=== PATIENT | female | born 1960 | race Caucasian/White ===

== ENCOUNTER 2020-02-08 01:03 | Inpatient (IN) | payer MEDICARE, MEDICAID ==
[~2020-02-08] VITALS: Ht 165.1 cm; Wt 72.1 kg
[2020-02-08] VITALS (8 sets, daily range): BP systolic 100–148; BP diastolic 71–89
[~2020-02-08 01:03] MED LIST: AMLODIPINE BESY10 MG ORAL; Acetaminophen GT; BACTROBAN 2% OI15 GM TOPIC; CARAFATE1 G1 ORAL; CEFDINIR300 MG PO; CEFEPIME-D1 GM/50 ML IVPB; CEPHALEXIN500 MG ORAL; CRESTOR40 MG ORAL; DOCUSATE SODIU100 M2 ORAL; DOCUSATE SODIU100 MG ORAL; FERROUS SULFAT325 MG ORAL; FLUOXETINE HCL40 MG ORAL; GABAPENTIN600 MG ORAL; GEODON20 MG ORAL; GEODON40 MG ORAL; HEPARIN SO5000 UNIT2 SUBQ; IBUPROFEN800 MG ORAL; LANSOPRAZOLE30 MG GT; LASIX20 M1 ORAL; LIPITOR80 MG GT; LOPRESSOR25 M1 GT; LORAZEPAM2 MG ORAL; METOCLOPRAM5 MG/1 M1 IVP; METOPROLOL SUC100 MG ORAL; MYRBETRIQ25 MG PO; NEXIUM40 MG ORAL; NORCO 5-325 TA1 EACH ORAL; NORVASC5 MG GT; NOVOLOG100 UNITS1 SUBQ; PANTOPRAZOLE SO40 MG ORAL; TEMAZEPAM15 MG ORAL; XANAX1 MG PO; ZYPREXA10 MG ORAL
--- NOTE | 2020-02-08 01:15 | Emergency Room Report ---
History of Present Illness General Chief Complaint: Back pain Source: Patient, EMS Present Illness HPI Disclaimer: Please note that this report is being documented using DRAGON technology. This can lead to erroneous entry secondary to incorrect interpretation by the dictating instrument. HPI: 59-year-old female history of dementia presents from nursing facility after a fall. Patient reportedly rolled out of her bed onto her right side approximately 30 minutes prior to arrival. She is complaining of back pain. Unknown head injury or loss of conscious. Does not appear to be in any acute distress at this time. Does not recall the fall and is a poor historian. Also an abrasion over the left elbow is noted but she does not appear to be in any pain from it. Allergies: Coded Allergies: No Known Allergies (Verified , 09/23/14) COVID-19 Screening Contact w/high risk pt: No Recent Travel to affected area: No Experienced COVID-19 symptoms?: No COVID-19 symptoms experienced: Cough Nursing Documentation-PMH Hx Cardiac Problems: No Hx Hypertension: Yes Hx Asthma: Yes Hx Cancer: No Hx Gastrointestinal Problems: Yes Hx Neurological Problems: Yes - rib fracture Hx Peripheral Neuropathy: Yes Review of Systems All Other Systems: negative except mentioned in HPI Physical Exam General: Awake, confused, no acute distress HEENT: NC/AT. No scalp or facial hematomas, lacerations or abrasions. EOMI. Cardiovascular: RRR. S1 and S2 normal. Resp: Normal work of breathing. No cough, wheezing or crackles appreciated Abdomen: Abdomen is soft, nondistended. G-tube in place Skin: Very small skin abrasion over the left elbow. Hemostatic. MSK: Normal tone and bulk. Lower extremities held in contracture. No obvious deformity. Neuro: Awake, oriented to self only. Poor historian Spine: Tenderness in the midline at the base of the cervical spine, the entire thoracic and lumbosacral spine without obvious deformity or step-off. Procedures Critical Care Time Critical Care Time Total critical care time: Approximately 45 minutes Due to a high probability of clinically significant, life threatening deterioration, the patient required the highest level of preparedness to intervene emergently and I personally spent this critical care time directly and personally managing the patient. This critical care time included obtaining a history, examining the patient, pulse oximetry, ordering and reviewing studies , ordering treatments, evaluating response to treatment and updating management plan as needed, frequent reassessment and discussion with other providers as well as arranging for ultimate disposition. This critical to care time was performed to assess and manage the high probability of life-threatening deterioration that could result in multiorgan failure. This critical care time is separate from the separately billable procedures and treating other patients. Medical Decision Making Diagnostic Impression: Primary Impression: Fall from bed Additional Impressions: Back pain Pleural effusion Hyperkalemia ER Course 59-year-old female presents after reported fall from bed at longterm facility. Unknown whether or not the patient sustained a head injury. She has multiple psychiatric conditions and is a poor historian overall. No external signs of trauma except she is complaining of diffuse back pain. CT scan of the head and entire spine were obtained as well as x-ray of the left elbow as there was a small abrasion. No evidence of fracture, dislocation or significant trauma identified. 0500: CT scans of the head shows no acute intracranial injury. CT scans of the spine did not find acute injury in the spine however a large right-sided pleural effusion was identified. Patient is not complaining of either shortness of breath, chest pain or now back pain. She did have a brief desaturation while laying on her back but improved by sitting upright and starting patient on oxygen. Labs show slight elevation in potassium patient was treated with insulin, glucose, calcium gluconate. No EKG changes identified. Patient will be admitted to the SDU under her assigned hospitalist, Dr. Petersen Laboratory Tests Test 02/08/20 01:00 White Blood Count 17.3 K/UL (4.8-10.8) H Red Blood Count 4.09 M/UL (4.20-5.40) L Hemoglobin 13.0 G/DL (12.0-16.0) Hematocrit 39.8 % (37.0-47.0) Mean Corpuscular Volume 97 FL (80-99) Mean Corpuscular Hemoglobin 31.8 PG (27.0-31.0) H Mean Corpuscular Hemoglobin Concent 32.6 G/DL (32.0-36.0) Red Cell Distribution Width 14.5 % (11.6-14.8) Platelet Count 495 K/UL (150-450) H Mean Platelet Volume 5.8 FL (6.5-10.1) L Neutrophils (%) (Auto) % (45.0-75.0) Lymphocytes (%) (Auto) % (20.0-45.0) Monocytes (%) (Auto) % (1.0-10.0) Eosinophils (%) (Auto) % (0.0-3.0) Basophils (%) (Auto) % (0.0-2.0) Prothrombin Time 11.3 SEC (9.30-11.50) Prothrombin Time INR 1.0 (0.9-1.1) Activated Partial Thromboplast Time 32 SEC (23-33) Sodium Level 140 MMOL/L (136-145) Potassium Level 5.2 MMOL/L (3.5-5.1) H Chloride Level 101 MMOL/L (98-107) Carbon Dioxide Level 29 MMOL/L (21-32) Anion Gap 11 mmol/L (5-15) Blood Urea Nitrogen 22 mg/dL (7-18) H Creatinine 0.4 MG/DL (0.55-1.30) L Estimated Glomerular Filtration Rate > 60 mL/min (>60) Glucose Level 116 MG/DL (74-106) H Calcium Level 9.5 MG/DL (8.5-10.1) Total Bilirubin 0.5 MG/DL (0.2-1.0) Aspartate Amino Transferase (AST) 46 U/L (15-37) H Alanine Aminotransferase (ALT) 28 U/L (12-78) Alkaline Phosphatase 96 U/L (46-116) Total Protein 7.3 G/DL (6.4-8.2) Albumin 2.9 G/DL (3.4-5.0) L Globulin 4.4 g/dL Albumin/Globulin Ratio 0.7 (1.0-2.7) L EKG Diagnostic Results EKG Time: 05:10 Rate: tachycardiac Other Impression Sinus tachycardia, normal axis, no ST segment changes Rhythm Strip Diag. Results Rhythm Strip Time: 05:10 EP Interpretation: yes Rate: 110s Rhythm: no PVC's, no ectopy Other X-Ray Diagnostic Results Other X-Ray Diagnostic Results : X-Ray ordered: Left elbow # of Views/Limited Vs Complete: 2 View Indication: Pain EP Interpretation: Yes Interpretation: no dislocation, no soft tissue swelling, no fractures Impression: No acute disease Electronically Signed by: Electronically signed by Dr. Mack Xie CT/MRI/US Diagnostic Results CT/MRI/US Diagnostic Results : Impression CT HEAD IMPRESSION: No acute intracranial hemorrhage, midline shift, or mass effect. Radiologist: Luis Sutton MD Electronically Signed: 02/08/20 05:02 Phone: Study ready at 04:47 and initial results transmitted at 05:02 CT C-SPINE IMPRESSION: No acute cervical spine fracture. Severe multilevel degenerative changes. Large right pleural effusion. Radiologist: Luis Sutton MD Electronically Signed: 02/08/20 05:06 Phone: Study ready at 05:00 and initial results transmitted at 05:06 Disposition: ADMITTED INPATIENT Condition: Serious Mack Xie MD Feb 08, 2020 01:15
--- NOTE | 2020-02-08 05:03 | Diagnostic Imaging Report ---
EXAM: CT Head Without Intravenous Contrast CLINICAL HISTORY: INJ TECHNIQUE: Axial computed tomography images of the head/brain without intravenous contrast. CTDI is 53.40 mGy and DLP is 1072.20 mGy-cm. One or more of the following dose reduction techniques were used: automated exposure control, adjustment of the mA and/or kV according to patient size, use of iterative reconstruction technique. COMPARISON: Head CT November 23, 2019 FINDINGS: No acute intracranial hemorrhage. No midline shift or mass effect. The territorial simon-white matter differentiation is maintained throughout. Age-related cerebral volume loss. Nonspecific white matter hypoattenuation, consistent with chronic ischemic microangiopathy. Right cataract surgery. The calvarium is intact. The visualized paranasal sinuses and mastoid air cells are grossly clear. IMPRESSION: No acute intracranial hemorrhage, midline shift, or mass effect.
--- NOTE | 2020-02-08 05:06 | Diagnostic Imaging Report ---
EXAM: CT Cervical Spine Without Intravenous Contrast CLINICAL HISTORY: INJ TECHNIQUE: Axial computed tomography images of the cervical spine without intravenous contrast. CTDI is 20.20 mGy and DLP is 544.60 mGy-cm. One or more of the following dose reduction techniques were used: automated exposure control, adjustment of the mA and/or kV according to patient size, use of iterative reconstruction technique. COMPARISON: No relevant prior studies available. FINDINGS: The vertebral body heights are maintained. There is no spondylolisthesis. The craniocervical junction is intact. The atlanto-dens interval is maintained. The dens is intact. Severe multilevel degenerative endplate changes with posterior spondylotic ridging at C5-6 and C6-7. Mild spinal canal stenosis at these levels, which is severe multiple levels. Multilevel facet and uncovertebral arthropathy which contributes to multilevel bilateral foraminal stenosis. Large right pleural effusion. IMPRESSION: No acute cervical spine fracture. Severe multilevel degenerative changes. Large right pleural effusion.
[2020-02-08 05:19] LABS: HEMATOCRIT 39.8 % (37.0-47.0); MEAN CORPUSCULAR VOLUME 97 FL (80-99); PLATELET COUNT 495 K/UL (150-450); RED BLOOD COUNT 4.09 M/UL (4.20-5.40); RED CELL DISTRIBUTION WIDTH 14.5 % (11.6-14.8); WHITE BLOOD COUNT 17.3 K/UL (4.8-10.8)
[2020-02-08 05:29] LABS: ANION GAP 11 mmol/L (5-15); BLOOD UREA NITROGEN 22 mg/dL (7-18); CALCIUM 9.5 MG/DL (8.5-10.1); CARBON DIOXIDE 29 MMOL/L (21-32); CHLORIDE 101 MMOL/L (98-107); CREATININE 0.4 MG/DL (0.55-1.30); POTASSIUM 5.2 MMOL/L (3.5-5.1); SODIUM 140 MMOL/L (136-145)
[2020-02-08] MEDS ORDERED: Omnipaque-300 100ml vial INJ ONE (05:30)
[2020-02-08] MEDS ORDERED: Calcium Gluconate 1gm/10ml vial IVP ONE (05:30)
[2020-02-08] MEDS ORDERED: Insulin Human Regular 100units/ml 3ml IV ONE (05:30)
[2020-02-08 05:35] LABS: ALANINE AMINOTRANSFERASE 28 U/L (12-78); ALBUMIN 2.9 G/DL (3.4-5.0); ALBUMIN/GLOBULIN RATIO 0.7 (1.0-2.7); ALKALINE PHOSPHATASE 96 U/L (46-116); ASPARTATE AMINO TRANSFERASE 46 U/L (15-37); BILIRUBIN,TOTAL 0.5 MG/DL (0.2-1.0)
[2020-02-08] MEDS ORDERED: ACETAMINOPHEN325 M1 ORAL (06:06)
[2020-02-08] MEDS ORDERED: CEPHALEXIN500 MG ORAL (06:06)
[2020-02-08] MEDS ORDERED: TRAMADOL HCL50 MG ORAL (06:06)
--- NOTE | 2020-02-08 06:46 | Diagnostic Imaging Report ---
ADDENDUM - Added by Luis Sutton MD on 02/08/2020 7:25 AM (-04:00) The body and impression of the report should state: Acute-appearing compression fracture of the superior endplate of T6 (NOTE T7). No retropulsion of fragments or spinal canal stenosis. Correlation with thoracic spine MRI recommended. EXAM: CT Thoracic Spine Without Intravenous Contrast CLINICAL HISTORY: INJ TECHNIQUE: Axial computed tomography images of the thoracic spine without intravenous contrast. CTDI is 9.2 mGy and DLP is 397 mGy-cm. One or more of the following dose reduction techniques were used: automated exposure control, adjustment of the mA and/or kV according to patient size, use of iterative reconstruction technique. COMPARISON: No relevant prior studies available. FINDINGS: Acute appearing compression fracture of the superior endplate of T7. No significant retropulsion of fragments or spinal canal stenosis at this level. Correlation with thoracic spine MRI is recommended. The remaining thoracic spine vertebral body heights are maintained. There are multilevel degenerative endplate changes, intervertebral disc space narrowing, and facet arthropathy of the lower cervical and thoracic spine. Large right pleural effusion with complete atelectasis of the entire right lung. Mediastinal shift to the left. Moderate centrilobular emphysematous changes of the left lung. Cardiomegaly. Calcified thoracic aorta. IMPRESSION: Acute-appearing compression fracture of the superior endplate of T7. No retropulsion of fragments or spinal canal stenosis. Correlation with thoracic spine MRI recommended. Large right pleural effusion with complete atelectasis of the entire right lung. Mediastinal shift to the left. <MYCVCSECTION> Communications: 02/08/20 07:46 Verify Receipt Verified receipt with Katina PHILIPPE on 02/07 07:46 (-07:00)
--- NOTE | 2020-02-08 07:23 | Diagnostic Imaging Report ---
EXAM: CT Chest Without Intravenous Contrast CLINICAL HISTORY: INJ TECHNIQUE: Axial computed tomography images of the chest without intravenous contrast. CTDI is 7.2 mGy and DLP is 269.8 mGy-cm. One or more of the following dose reduction techniques were used: automated exposure control, adjustment of the mA and/or kV according to patient size, use of iterative reconstruction technique. COMPARISON: No relevant prior studies available. FINDINGS: Large right pleural effusion with atelectasis of the entire right lung. Nodular areas throughout the right pleura are suspicious for metastatic implants. Correlate for any history of malignancy. Mediastinal shift to the left. The left lung demonstrate moderate centrilobular emphysematous changes. Trace left pleural effusion with subjacent atelectasis. No pneumothorax. Atherosclerotic changes of the thoracic aorta, with coronary involvement. No cardiomegaly. No pericardial effusion. There is suspected mediastinal adenopathy however, evaluation is limited without intravenous contrast. Correlation with PET/CT scan versus contrast enhanced CT scan recommended. PEG tube in the stomach. Metallic density in the distal stomach, correlate for gastric intervention. 2.4 cm low attenuation focus in the left hepatic lobe, anteriorly, metastatic disease not excluded. Consider correlation with abdominal MRI. See concomitant thoracic spine CT scan where a T6 fracture suspected. No acute rib fractures. Old left-sided posterior lateral rib fractures which are displaced and appear chronic. IMPRESSION: Large right pleural effusion with atelectasis of the entire right lung. Nodular areas throughout the right pleura are suspicious for metastatic implants. Correlate for any history of malignancy. Mediastinal shift to the left. The left lung demonstrate moderate centrilobular emphysematous changes. There is suspected mediastinal adenopathy however, evaluation is limited without intravenous contrast. Correlation with PET/CT scan versus contrast enhanced CT scan recommended. See concomitant thoracic spine CT scan where a T6 fracture suspected.
[2020-02-08] MEDS ORDERED: Metoclopramide 10mg/2ml Inj IVP PRN (08:15)
[2020-02-08] MEDS ORDERED: traMADol 50mg tab ORAL PRN (08:15)
[2020-02-08] MEDS ORDERED: Heparin 5000 units/ml inj SUBQ SCH (09:00)
--- NOTE | 2020-02-08 10:00 | Consultation ---
DATE OF CONSULTATION: 02/08/2020 PULMONARY CONSULTATION CONSULTING PHYSICIAN: Jose Luis Dunlap MD. REASON FOR CONSULTATION: Pleural effusion. HISTORY OF PRESENT ILLNESS: Patient is a 59-year-old female with history of dementia, history of prior respiratory issues. Patient [facility] from [facility]. The patient apparently rolled out of bed. Patient was seen in the emergency room, was noted to be in no significant distress. Patient admitted for further care and management. The patient has had a history of a rib fracture. Chest CT done on 02/08/2020 for further evaluation notable for large right pleural effusion with atelectasis of the entire right lung with question metastatic implants. The patient's left lung with noted emphysema, also some mediastinal adenopathy. The patient now admitted. I was called to assist and evaluate further. The patient's prior admits were well reviewed. Patient was last discharged on 12/20/2019. 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 SOCIAL HISTORY: Longstanding history of smoking, currently mostly bedbound. REVIEW OF SYSTEMS: Unobtainable. MEDICATIONS: Reviewed and reconciled. ALLERGIES: Reviewed and reconciled. PHYSICAL EXAMINATION: GENERAL: Ill-appearing female. VITAL SIGNS: Reviewed. Pulse 102, blood pressure 134/75, sats 98% on simple mask, temperature 98, respiratory rate 22. HEENT: Negative. The patient's oropharynx is dry. NECK: Supple. No adenopathy. LUNGS: Poor breath sounds right lung, reduced left lung. CARDIAC: S1, S2. Slightly tachycardic without murmurs. ABDOMEN: Soft, nontender. G-tube in place. EXTREMITIES: No cyanosis or clubbing. NEUROLOGIC: Confused. Responds to pain x4. LABORATORY DATA: Reviewed. White count 17.3, platelets of 495. Chemistries, potassium 5.2, BUN 22, creatinine 0.4. Albumin 2.9. IMPRESSION: 1. Recurrent pleural effusion, likely due to small cell cancer. 2. 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 3. Chronic respiratory failure. 4. Hypercapnia. 5. Hypoxemia. 6. Severe protein-calorie malnutrition. 7. Hypertension per history. RECOMMENDATION: We will proceed with thoracentesis for therapeutic purposes. Antibiotics. DVT prophylaxis. Definitely need to discuss code status. The patient overall with poor prognosis for any type of meaningful recovery. We will defer to primary care doctor and attempt to stabilize further prior to discharge back to [facility]. Aspiration precautions and close follow up. Jose Luis Dunlap M.D. DR: MINE JOB#: [id number] CC:
[2020-02-08] MEDS ORDERED: NovoLOG Insulin Flexpen SUBQ SCH ×2 (12:00)
[2020-02-08] MEDS ORDERED: Cephalexin 500mg cap ORAL SCH (12:00)
[2020-02-08] MEDS: NovoLOG Insulin Flexpen SUBQ SCH ×3 (12:00→23:31)
[2020-02-08] MEDS ORDERED: Cephalexin 250mg/5ml Susp 100mL Bottle ORAL SCH ×2 (12:00)
--- NOTE | 2020-02-08 14:33 | Pre-Procedure Note/Attestation ---
Pre-Procedure Note/Attestation Complete Prior to Procedure Planned Procedure: right Procedure Narrative: thoracentesis Indications for Procedure Pre-Operative Diagnosis: pleural effusion Attestation I attest that I discussed the nature of the procedure; its benefits; risks and complications; and alternatives (and the risks and benefits of such alternatives ), prior to the procedure, with the patient (or the patient's legal advertising representative). I attest that, if there was a reasonable possibility of needing a blood transfusion, the patient (or the patient's legal advertising representative) was given the [facility] standardized written summary, pursuant to the Mario Stephanie Blood Safety Act ([place] Health and Safety Code # 1645, as amended). I attest that I re-evaluated the patient just prior to the surgery and that there has been no change in the patient's H&P, except as documented below: D/W phone with pt's. lisa Rodríguez at 1330 Jose Lam MD Feb 08, 2020 14:33
--- NOTE | 2020-02-08 15:11 | Brief Operative Note ---
Immediate Post Operative Note Operative Note Pre-op Diagnosis: pleural effusion Procedure: thoracentesis R Post-op Diagnosis: same as pre-op Surgeon: Ciarra Pérez Anesthesia: local Specimen: none Complications: none Fluids: none Implant(s) used?: No Jose Pérez MD Feb 08, 2020 15:10
--- NOTE | 2020-02-08 15:25 | Diagnostic Imaging Report ---
Indications:Pain, trauma Technique: Three or 4 views of the left elbow Comparison: None Findings: Exam is limited by suboptimal positioning. No acute fractures. No dislocations. Unable to rule out joint effusion, due to lack of a true lateral view. Impression: Very limited exam. No gross acute abnormality
--- NOTE | 2020-02-08 16:15 | Diagnostic Imaging Report ---
Indications: Fall, trauma, back pain Technique: Spiral acquisitions obtained through the lumbar spine. Multiplanar reconstructions were generated. No IV contrast utilized. Total dose length product 473 mGycm. CTDIvol(s) mGy. Dose reduction achieved using automated exposure control Comparison: none Findings: There is mild lumbar dextro scoliotic deformity, may in part be an artifact of positioning. There is bilateral L5 spondylolysis and bilateral grade 2 L5 on S1 spondylolisthesis. The remainder of the bony alignment is normal. The vertebral body heights are preserved. No acute fractures. No dislocations. At L2-3, there is circumferential annular bulge which does not significantly compromise the spinal canal or neural foramina. There is degenerative facet arthrosis. And L3-4, circumferential annular bulge is noted, does not significantly compromise the spinal canal or neural foramina. At L4-5, facet arthrosis narrows the right neural foramen. There is circumferential annular bulge and broad-based posterior disc protrusion which may slightly compromise the spinal canal. At L5-S1, the alignment abnormality results in mild compromise of the neural foramina. No definite spinal stenosis. The included extraspinal soft tissues demonstrate massive right pleural effusion, pleural masses on the right, however, lymphadenopathy. Impression: No acute abnormality Degenerative changes, as detailed above Bilateral L5 spondylolysis, grade 2 L5 on S1 spondylolisthesis, secondary degenerative change The CT scanner at [facility] is accredited by the [employer] and the scans are performed using protocols designed to limit radiation exposure to as low as reasonably achievable to attain images of sufficient resolution adequate for diagnostic evaluation.
--- NOTE | 2020-02-08 16:30 | History and Physical Report ---
DATE OF ADMISSION: 02/08/2020 CHIEF COMPLAINT: Fall on the left shoulder. HISTORY OF PRESENT ILLNESS: This is a 59-year-old female from [facility]. The patient presented after a fall and left shoulder pain. The patient was discharged from this hospital about two months ago. She has multiple medical problems. PAST MEDICAL HISTORY: 1. Type 2 diabetes mellitus. 2. Organic brain syndrome. 3. Status post mediastinal mass with stage IV small cell carcinoma. 4. History of neuroendocrine tumour. 5. History of multiple electrolyte abnormalities. 6. COPD. 7. Hypertensive cardiovascular disease. 8. Status post G-tube placement. 9. Schizophrenia. 10. Peptic ulcer disease. 11. Peripheral vascular disease. 12. Multiple ulcers. MEDICATIONS: Tylenol as needed, amlodipine, atorvastatin, cephalexin, subcutaneous heparin, Pepcid, metoprolol, insulin sliding scale, tramadol as needed, tube feeding. ALLERGIES: No known drug allergies. FAMILY HISTORY: Unable to obtain due to mental status. SOCIAL HISTORY: Unable to obtain due to mental status. REVIEW OF SYSTEMS: Unable to obtain due to mental status. PHYSICAL EXAMINATION: GENERAL: This is an elderly female, who is moaning. VITAL SIGNS: Blood pressure 120/86, pulse 97, respirations 20, temperature 97.2 axillary. HEENT: The head is normocephalic and atraumatic. Pupils are equal, round, and reactive to light and accommodation consensually. NECK: Supple. Trachea midline. There was no lymphadenopathy or thyromegaly. LUNGS: Bilateral rhonchi. HEART: Regular rate and rhythm without rubs, murmurs, or gallops. ABDOMEN: Soft, nontender. She has a G-tube. EXTREMITIES: No clubbing or cyanosis. She has bilateral feet ulcers. NEUROLOGIC: She is confused. There were no gross focal findings. LABORATORY AND ANCILLARY DATA: Chest CT shows large right pleural effusion with atelectasis of the entire right lung. There is nodular area throughout the right pleura with suspicious of metastatic implants. The left lung would demonstrate a moderate centrilobular emphysematous changes. There is suspected mediastinal adenopathy. Head CT shows no acute findings. A spine CT scan shows calcified of thoracic aorta. Laboratory data - CBC shows white count of 17,300, hemoglobin 13. Chemistry, sodium 140, potassium 5.2, glucose 116, BUN 22, creatinine 0.4. Calcium 9.5. Albumin 2.9. ASSESSMENT: 1. Large pleural effusion, suspected malignant. 2. Volume depletion. 3. Type 2 diabetes mellitus. 4. Organic brain syndrome. 5. Status post mediastinal mass with stage IV small cell carcinoma. 6. History of neuroendocrine tumour. 7. History of multiple electrolyte abnormalities. 8. COPD. 9. Hypertensive cardiovascular disease. 10. Status post G-tube placement. 11. Schizophrenia. 12. Peptic ulcer disease. 13. Peripheral vascular disease. 14. Multiple ulcers. PLAN: 1. Thoracentesis. 2. Rule out septicemia. 3. Obtain ID consult. 4. Continue penitentiary medications. Sterling Petersen M.D. DR: ORI JOB#: [id number] CC:
--- NOTE | 2020-02-08 17:14 | Diagnostic Imaging Report ---
Indications: Pleural effusion Technique: Ultrasound used to localize optimal puncture site. Sterile prepping and draping right chest. Local anesthesia with 1% lidocaine. Under real-time ultrasound guidance, puncture pleural space using thoracentesis needle. Stylet removed. Catheter placed to vacuum bottle suction. Total 1400 milliliters of blood-tinged fluid aspirated. Catheter stopped draining before the fluid as completely evacuated. Patient unable to tolerate catheter readjustment cycling catheter was removed. Some residual pleural fluid is demonstrated on the completion images. Patient tolerated procedure well, without immediate complication. Findings: Followup sonography demonstrates residual pleural fluid Impression: Successful ultrasound-guided thoracentesis, yielding 1400 milliliters of fluid
--- NOTE | 2020-02-08 17:16 | Diagnostic Imaging Report ---
Indication: Post thoracentesis Technique: One view of the chest Comparison: 12/16/2019 Findings: Chest radiograph taken after evacuation of 1400 mL of fluid demonstrates reexpansion of a portion of the right upper lung. There is still considerable opacification of the right hemithorax. Interstitial disease is again demonstrated on the left. There is no pneumothorax Impression: Some re-aeration of the right upper lobe, postthoracentesis. No radiographically evident complication. Considerable residual opacity likely reflects combination of residual pleural fluid, tumor, and atelectatic lung
[2020-02-08] MEDS: Miconazole 2% Cream 30gm TOPIC SCH (17:27)
[2020-02-08] MEDS ORDERED: Miconazole 2% Cream 30gm TOPIC SCH (18:00)
[2020-02-08] MEDS: Atorvastatin 80mg tab GT SCH (20:41)
[2020-02-09] VITALS (7 sets, daily range): BP systolic 90–116; BP diastolic 60–75
[2020-02-09 04:18] LABS: BASOPHILS % (AUTO) 0.5 % (0.0-2.0); EOSINOPHILS % (AUTO) 0.2 % (0.0-3.0); HEMATOCRIT 34.5 % (37.0-47.0); HEMOGLOBIN 11.3 G/DL (12.0-16.0); LYMPHOCYTES % (AUTO) 9.7 % (20.0-45.0); MEAN CORPUSCULAR VOLUME 97 FL (80-99); MONOCYTES % (AUTO) 7.4 % (1.0-10.0); NEUTROPHILS % (AUTO) 82.2 % (45.0-75.0); PLATELET COUNT 390 K/UL (150-450); RED BLOOD COUNT 3.57 M/UL (4.20-5.40); RED CELL DISTRIBUTION WIDTH 14.8 % (11.6-14.8); WHITE BLOOD COUNT 11.5 K/UL (4.8-10.8)
[2020-02-09 04:30] LABS: ANION GAP 3 mmol/L (5-15); BLOOD UREA NITROGEN 23 mg/dL (7-18); CALCIUM 9.8 MG/DL (8.5-10.1); CARBON DIOXIDE 35 MMOL/L (21-32); CHLORIDE 102 MMOL/L (98-107); CREATININE 0.5 MG/DL (0.55-1.30); POTASSIUM 3.8 MMOL/L (3.5-5.1); SODIUM 140 MMOL/L (136-145)
[2020-02-09] MEDS: NovoLOG Insulin Flexpen SUBQ SCH ×4 (05:30→23:40)
[2020-02-09] MEDS: Miconazole 2% Cream 30gm TOPIC SCH ×2 (08:16→17:27)
--- NOTE | 2020-02-09 09:48 | General Progress Note ---
Assessment/Plan Problem List: (1) Schizophrenia ICD Codes: F20.9 - Schizophrenia, unspecified SNOMED: 52853389 (2) COPD exacerbation ICD Codes: J44.1 - Chronic obstructive pulmonary disease with (acute) exacerbation SNOMED: 365561372 (3) Pleural effusion ICD Codes: J90 - Pleural effusion, not elsewhere classified SNOMED: 81817422 (4) Pleural mass ICD Codes: J94.8 - Other specified pleural conditions SNOMED: 196579234 (5) Neuroendocrine cancer ICD Codes: C7A.8 - Other malignant neuroendocrine tumors SNOMED: 310780144282843 (6) Small cell lung cancer in adult ICD Codes: C34.90 - Malignant neoplasm of unspecified part of unspecified bronchus or lung SNOMED: 487743777 Assessment/Plan: post thoracentesis, still dyspnea, continue pulm care, gt feed, all orders reeviewed Subjective ROS Limited/Unobtainable: Yes Allergies: Coded Allergies: No Known Allergies (Verified , 09/23/14) Objective Last 24 Hour Vital Signs Date Time Temp Pulse Resp B/P (MAP) Pulse Ox O2 Delivery O2 Flow Rate FiO2 02/09/20 08:14 99 103/67 02/09/20 08:13 99 103/67 02/09/20 08:00 8.0 02/09/20 08:00 Simple Mask 4.0 02/09/20 08:00 98.0 99 21 103/67 (79) 99 02/09/20 04:00 8.0 02/09/20 04:00 Simple Mask 8.0 02/09/20 04:00 97.0 95 20 92/62 (72) 100 02/09/20 03:30 91 02/09/20 00:00 8.0 02/09/20 00:00 97.9 68 20 100/72 (81) 100 02/09/20 00:00 Simple Mask 8.0 02/08/20 23:48 61 02/08/20 20:43 105 110/71 02/08/20 20:09 104 02/08/20 20:00 97.5 105 20 110/71 (84) 99 02/08/20 20:00 Simple Mask 8.0 02/08/20 20:00 8.0 02/08/20 16:00 8.0 02/08/20 16:00 96 02/08/20 16:00 Simple Mask 15.0 02/08/20 16:00 98.1 98 21 100/77 (85) 97 02/08/20 12:00 8.0 02/08/20 12:00 94 02/08/20 12:00 Simple Mask 15.0 02/08/20 12:00 97.2 97 20 120/86 (97) 98 Intake and Output 02/08/20 02/09/20 19:00 07:00 Intake Total 615 ml 880 ml Output Total 400 ml Balance 615 ml 480 ml Intake Free Water 150 ml IV Total 225 ml 530 ml Tube Feeding 240 ml 300 ml Other 50 ml Output Urine Total 400 ml # Bowel Movements 1 Laboratory Tests 02/08/20 12:24: POC Whole Blood Glucose 112H 02/08/20 14:00: Body Fluid Total Protein [Pending], Body Fluid Lactate Dehydrogenase [Pending] 02/08/20 17:14: POC Whole Blood Glucose 101 02/08/20 23:10: POC Whole Blood Glucose 95 02/09/20 03:00: White Blood Count 11.5H, Red Blood Count 3.57L, Hemoglobin 11.3L, Hematocrit 34.5L, Mean Corpuscular Volume 97, Mean Corpuscular Hemoglobin 31.6H, Mean Corpuscular Hemoglobin Concent 32.7, Red Cell Distribution Width 14.8, Platelet Count 390, Mean Platelet Volume 6.1L, Neutrophils (%) (Auto) 82.2H, Lymphocytes (%) (Auto) 9.7L, Monocytes (%) (Auto) 7.4, Eosinophils (%) (Auto) 0.2, Basophils (%) (Auto) 0.5, Sodium Level 140, Potassium Level 3.8, Chloride Level 102, Carbon Dioxide Level 35H, Anion Gap 3L, Blood Urea Nitrogen 23H, Creatinine 0.5L, Estimat Glomerular Filtration Rate > 60, Glucose Level 107H, Hemoglobin A1c 4.8, Calcium Level 9.8, Magnesium Level 1.8 02/09/20 05:20: POC Whole Blood Glucose 104 Height (Feet): 5 Height (Inches): 5.00 Weight (Pounds): 129 General Appearance: lethargic, confused EENT: normal ENT inspection Neck: normal alignment Cardiovascular: regular rhythm Respiratory/Chest: lungs clear, accessory muscle use Abdomen: non tender Edema: no edema noted Arm (L), no edema noted Arm (R), no edema noted Leg (L), no edema noted Leg (R), no edema noted Pedal (L), no edema noted Pedal (R), no edema noted Generalized Neurologic: motor weakness, disoriented Duncan Avila MD Feb 09, 2020 09:48
[2020-02-09] MEDS: Cefepime HCl 2 GM in D5W 55 ML IVPB SCH ×2 (10:19→20:09)
--- NOTE | 2020-02-09 13:14 | Pulmonology Progress Note ---
Subjective ROS Limited/Unobtainable: Yes Allergies: Coded Allergies: No Known Allergies (Verified , 09/23/14) Subjective care noted s/p tap awake Objective Last 24 Hour Vital Signs Date Time Temp Pulse Resp B/P (MAP) Pulse Ox O2 Delivery O2 Flow Rate FiO2 02/09/20 12:47 88 02/09/20 12:00 Simple Mask 4.0 02/09/20 12:00 97.5 93 23 97/68 (78) 93 02/09/20 12:00 8.0 02/09/20 08:14 99 103/67 02/09/20 08:13 99 103/67 02/09/20 08:00 8.0 02/09/20 08:00 94 02/09/20 08:00 Simple Mask 4.0 02/09/20 08:00 98.0 99 21 103/67 (79) 99 02/09/20 04:00 8.0 02/09/20 04:00 Simple Mask 8.0 02/09/20 04:00 97.0 95 20 92/62 (72) 100 02/09/20 03:30 91 02/09/20 00:00 8.0 02/09/20 00:00 97.9 68 20 100/72 (81) 100 02/09/20 00:00 Simple Mask 8.0 02/08/20 23:48 61 02/08/20 20:43 105 110/71 02/08/20 20:09 104 02/08/20 20:00 97.5 105 20 110/71 (84) 99 02/08/20 20:00 Simple Mask 8.0 02/08/20 20:00 8.0 02/08/20 16:00 8.0 02/08/20 16:00 96 02/08/20 16:00 Simple Mask 15.0 02/08/20 16:00 98.1 98 21 100/77 (85) 97 Intake and Output 02/08/20 02/09/20 19:00 07:00 Intake Total 615 ml 880 ml Output Total 400 ml Balance 615 ml 480 ml Intake Free Water 150 ml IV Total 225 ml 530 ml Tube Feeding 240 ml 300 ml Other 50 ml Output Urine Total 400 ml # Bowel Movements 1 Objective GENERAL: Ill-appearing female.awake HEENT: Negative. The patient's oropharynx is dry. NECK: Supple. No adenopathy. LUNGS: improved breath sounds right lung, reduced left lung. CARDIAC: S1, S2. Slightly tachycardic without murmurs. ABDOMEN: Soft, nontender. G-tube in place. EXTREMITIES: No cyanosis or clubbing. NEUROLOGIC: Confused. Responds to pain x4. Microbiology Date/Time Source Procedure Growth Status 02/08/20 14:00 Other Fluid Gram Stain - Final Resulted 02/08/20 14:00 Other Fluid Body Fluid Culture - Preliminary NO GROWTH Resulted 02/08/20 09:30 Nasopharynx SARS-CoV-2 RdRp Gene Assay - Final Complete Laboratory Tests 02/08/20 14:00: Body Fluid Total Protein [Pending], Body Fluid Lactate Dehydrogenase [Pending] 02/08/20 17:14: POC Whole Blood Glucose 101 02/08/20 23:10: POC Whole Blood Glucose 95 02/09/20 03:00: White Blood Count 11.5H, Red Blood Count 3.57L, Hemoglobin 11.3L, Hematocrit 34.5L, Mean Corpuscular Volume 97, Mean Corpuscular Hemoglobin 31.6H, Mean Corpuscular Hemoglobin Concent 32.7, Red Cell Distribution Width 14.8, Platelet Count 390, Mean Platelet Volume 6.1L, Neutrophils (%) (Auto) 82.2H, Lymphocytes (%) (Auto) 9.7L, Monocytes (%) (Auto) 7.4, Eosinophils (%) (Auto) 0.2, Basophils (%) (Auto) 0.5, Sodium Level 140, Potassium Level 3.8, Chloride Level 102, Carbon Dioxide Level 35H, Anion Gap 3L, Blood Urea Nitrogen 23H, Creatinine 0.5L, Estimat Glomerular Filtration Rate > 60, Glucose Level 107H, Hemoglobin A1c 4.8, Calcium Level 9.8, Magnesium Level 1.8 02/09/20 05:20: POC Whole Blood Glucose 104 02/09/20 12:02: POC Whole Blood Glucose 99 Current Medications Medications (Trade) Dose Ordered Sig/Leonard Route PRN Reason Start Time Stop Time Status Last Admin Dose Admin Acetaminophen (Tylenol) 325 mg Q4H PRN GT Mild Pain (Pain Scale 1-3) 02/08/20 08:15 03/09/20 08:14 Amlodipine Besylate (Norvasc) 5 mg DAILY GT 02/08/20 09:00 03/09/20 08:59 02/08/20 08:56 Atorvastatin Calcium (Lipitor) 80 mg QHS GT 02/08/20 21:00 05/08/20 20:59 02/08/20 20:41 Cefepime HCl 2 gm/ Dextrose 55 ml @ 110 mls/hr EVERY 12 HOURS IVPB 02/09/20 09:00 02/16/20 08:59 02/09/20 10:19 Dextrose (Dextrose 50%) 25 ml Q30M PRN IV Hypoglycemia 02/08/20 09:45 05/08/20 09:44 Dextrose (Dextrose 50%) 50 ml Q30M PRN IV Hypoglycemia 02/08/20 09:45 05/08/20 09:44 Insulin Aspart (NovoLOG) Q6HR SUBQ 02/08/20 12:00 05/08/20 11:59 Lansoprazole (Prevacid) 30 mg DAILY GT 02/08/20 09:00 03/09/20 08:59 02/09/20 08:15 Metoclopramide HCl (Reglan) 10 mg Q6H PRN IVP Nausea & Vomiting 02/08/20 08:15 03/09/20 08:14 Metoprolol Tartrate (Lopressor) 25 mg Q12HR GT 02/08/20 09:00 05/08/20 08:59 02/08/20 20:43 Miconazole Nitrate (Miconazole Nitrate) 1 applic BID TOPIC 02/08/20 18:00 05/08/20 17:59 02/09/20 08:16 Sodium Chloride 1,000 ml @ 50 mls/hr Q20H IV 02/08/20 14:15 03/09/20 14:14 02/09/20 10:20 Tramadol HCl (Ultram) 50 mg Q6H PRN GT Moderate Pain (Pain Scale 4-6) 02/08/20 08:30 02/15/20 08:29 Assessment/Plan Assessment/Plan IMPRESSION: 1. Recurrent pleural effusion, likely due to small cell cancer. 2. 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 3. Chronic respiratory failure. 4. Hypercapnia. 5. Hypoxemia. 6. Severe protein-calorie malnutrition. 7. Hypertension per history. PLAN s/p tap oxygen pain control onc follow up advance directives prognosis poor expect fluid to reaccumlate may need PlueRX impression, plan, and exam edited and reviewed in detail care discussed with Jose Luis Ortega MD Feb 09, 2020 13:14
--- NOTE | 2020-02-09 16:00 | Diagnostic Imaging Report ---
EXAM: XR Right Shoulder, 3 Views CLINICAL HISTORY: FX TECHNIQUE: Frontal internal and external rotation views and scapular Y view of the right shoulder. COMPARISON: No relevant prior studies available. FINDINGS: Bones/joints: Greater than [id number] elevation of the distal right clavicle relative to the acromion, consistent with high-grade a.c. joint separation/sprain. Normal alignment at the right glenohumeral joint. No visible fracture. Soft tissues: Unremarkable. IMPRESSION: Greater than [id number] elevation of the distal right clavicle relative to the acromion, consistent with high-grade a.c. joint separation/sprain.
--- NOTE | 2020-02-09 16:04 | Diagnostic Imaging Report ---
EXAM: XR Right Hand, 3 Views CLINICAL HISTORY: FX TECHNIQUE: Frontal, lateral, and oblique views of the right hand. COMPARISON: No relevant prior studies available. FINDINGS: Bones/joints: Unremarkable. No visible displaced fracture. No dislocation. No osseous erosions. Visualized joint spaces appear unremarkable. Soft tissues: Diffuse soft tissue swelling throughout the hand. No radiodense foreign bodies. No soft tissue gas lucencies. IMPRESSION: Diffuse soft tissue swelling throughout the hand. No acute displaced fracture identified.
--- NOTE | 2020-02-09 16:06 | Diagnostic Imaging Report ---
EXAM: XR Right Elbow, 2 Views CLINICAL HISTORY: FX TECHNIQUE: Frontal and lateral views of the right elbow. COMPARISON: No relevant prior studies available. FINDINGS: Bones/joints: No acute displaced fracture identified. Elevation of the anterior elbow fat pad, suggesting a joint effusion. Numerous bulky rounded loose bodies along the elbow joint. Degenerative narrowing and marginal osteophytes at the elbow joint, most prominent in the radial head and olecranon. Soft tissues: Soft tissue swelling posterior to the elbow and along the dorsal proximal forearm. IMPRESSION: 1. No acute displaced fracture identified. If there is continued clinical concern, cross-sectional imaging with CT or MRI may be considered. 2. Elevation of the anterior elbow fat pad, suggesting a joint effusion. 3. Numerous bulky rounded loose bodies along the elbow joint. 4. Soft tissue swelling posterior to the elbow and along the dorsal proximal forearm. 5. Degenerative narrowing and marginal osteophytes at the elbow joint, most prominent in the radial head and olecranon.
[2020-02-09] MEDS: Acetaminophen 650mg/20.3ml GT PRN (17:27)
[2020-02-09] MEDS ORDERED: 1/2 NS 1000ml IV ONE (18:11)
[2020-02-09] MEDS: Atorvastatin 80mg tab GT SCH (20:10)
[2020-02-09] MEDS: traMADol 50mg tab GT PRN (21:22)
[2020-02-10] MEDS: traMADol 50mg tab GT PRN ×3 (03:28→17:18)
[2020-02-10 03:29] VITALS: BP 108/78
[2020-02-10] MEDS: NovoLOG Insulin Flexpen SUBQ SCH ×4 (05:11→23:40)
[2020-02-10 08:00] VITALS: BP 109/72
[2020-02-10] MEDS: Acetaminophen 650mg/20.3ml GT PRN ×2 (08:51→21:03)
[2020-02-10] MEDS: Cefepime HCl 2 GM in D5W 55 ML IVPB SCH ×2 (08:52→21:02)
[2020-02-10] MEDS: Miconazole 2% Cream 30gm TOPIC SCH ×2 (08:52→21:26)
--- NOTE | 2020-02-10 10:21 | General Progress Note ---
Assessment/Plan Problem List: (1) Schizophrenia ICD Codes: F20.9 - Schizophrenia, unspecified SNOMED: 24489905 (2) COPD exacerbation ICD Codes: J44.1 - Chronic obstructive pulmonary disease with (acute) exacerbation SNOMED: 421705481 (3) Pleural effusion ICD Codes: J90 - Pleural effusion, not elsewhere classified SNOMED: 99769079 (4) Pleural mass ICD Codes: J94.8 - Other specified pleural conditions SNOMED: 015761987 (5) Neuroendocrine cancer ICD Codes: C7A.8 - Other malignant neuroendocrine tumors SNOMED: 411822431695037 (6) Small cell lung cancer in adult ICD Codes: C34.90 - Malignant neoplasm of unspecified part of unspecified bronchus or lung SNOMED: 287559390 (7) Arrhythmia ICD Codes: I49.9 - Cardiac arrhythmia, unspecified SNOMED: 436760942 Assessment/Plan: post thoracentesis, still dyspnea, continue pulm care, gt feed, all orders reeviewed, had brief asystole no recur, stopped metoprolol added asa Subjective ROS Limited/Unobtainable: Yes Allergies: Coded Allergies: No Known Allergies (Verified , 09/23/14) Objective Last 24 Hour Vital Signs Date Time Temp Pulse Resp B/P (MAP) Pulse Ox O2 Delivery O2 Flow Rate FiO2 02/10/20 08:54 94 109/72 02/10/20 08:46 94 109/72 02/10/20 08:00 97.5 94 25 109/72 (84) 98 02/10/20 08:00 Simple Mask 4.0 02/10/20 07:49 95 02/10/20 04:00 4.0 31 02/10/20 04:00 Simple Mask 4.0 02/10/20 03:58 97.9 02/10/20 03:29 97.9 93 22 108/78 (88) 97 02/10/20 03:24 98 02/10/20 00:00 4.0 31 02/10/20 00:00 Simple Mask 4.0 02/09/20 23:37 98.0 92 22 111/75 (87) 94 02/09/20 23:25 90 02/09/20 21:00 Simple Mask 4.0 02/09/20 20:10 89 96/62 02/09/20 20:00 97.8 96 24 98/62 (74) 96 02/09/20 20:00 Simple Mask 4.0 02/09/20 20:00 4.0 31 02/09/20 19:24 105 02/09/20 16:00 4.0 31 02/09/20 16:00 Simple Mask 4.0 02/09/20 16:00 97.5 99 28 116/71 (86) 95 02/09/20 15:41 96 02/09/20 12:47 88 02/09/20 12:00 Simple Mask 4.0 02/09/20 12:00 97.5 93 23 97/68 (78) 93 02/09/20 12:00 4.0 31 Intake and Output 02/09/20 02/10/20 19:00 07:00 Intake Total 1315 ml 1348 ml Output Total 275 ml Balance 1315 ml 1073 ml Intake Free Water 80 ml 50 ml IV Total 605 ml 638 ml Tube Feeding 630 ml 660 ml Output Urine Total 275 ml # Voids 1 # Bowel Movements 1 Laboratory Tests 02/09/20 12:02: POC Whole Blood Glucose 99 02/09/20 16:42: POC Whole Blood Glucose 114H 02/09/20 23:35: POC Whole Blood Glucose [Pending] 02/10/20 04:28: POC Whole Blood Glucose 117H 02/10/20 09:34: Arterial Blood pH 7.390, Arterial Blood Partial Pressure CO2 53.2H, Arterial Blood Partial Pressure O2 86.3, Arterial Blood HCO3 31.5H, Arterial Blood Oxygen Saturation 95.8, Arterial Blood Base Excess 5.3H, Pal Test Positive Height (Feet): 5 Height (Inches): 5.00 Weight (Pounds): 130 General Appearance: lethargic, confused EENT: normal ENT inspection Neck: normal alignment Cardiovascular: regular rhythm Respiratory/Chest: lungs clear, accessory muscle use Abdomen: non tender Edema: no edema noted Arm (L), no edema noted Arm (R), no edema noted Leg (L), no edema noted Leg (R), no edema noted Pedal (L), no edema noted Pedal (R), no edema noted Generalized Neurologic: unresponsive Duncan Avila MD Feb 10, 2020 10:21
--- NOTE | 2020-02-10 10:56 | Pulmonology Progress Note ---
Subjective ROS Limited/Unobtainable: Yes Allergies: Coded Allergies: No Known Allergies (Verified , 09/23/14) Subjective care noted s/p tap awake comfortable Objective Last 24 Hour Vital Signs Date Time Temp Pulse Resp B/P (MAP) Pulse Ox O2 Delivery O2 Flow Rate FiO2 02/10/20 08:54 94 109/72 02/10/20 08:46 94 109/72 02/10/20 08:00 97.5 94 25 109/72 (84) 98 02/10/20 08:00 Simple Mask 4.0 02/10/20 07:49 95 02/10/20 04:00 4.0 31 02/10/20 04:00 Simple Mask 4.0 02/10/20 03:58 97.9 02/10/20 03:29 97.9 93 22 108/78 (88) 97 02/10/20 03:24 98 02/10/20 00:00 4.0 31 02/10/20 00:00 Simple Mask 4.0 02/09/20 23:37 98.0 92 22 111/75 (87) 94 02/09/20 23:25 90 02/09/20 21:00 Simple Mask 4.0 02/09/20 20:10 89 96/62 02/09/20 20:00 97.8 96 24 98/62 (74) 96 02/09/20 20:00 Simple Mask 4.0 02/09/20 20:00 4.0 31 02/09/20 19:24 105 02/09/20 16:00 4.0 31 02/09/20 16:00 Simple Mask 4.0 02/09/20 16:00 97.5 99 28 116/71 (86) 95 02/09/20 15:41 96 02/09/20 12:47 88 02/09/20 12:00 Simple Mask 4.0 02/09/20 12:00 97.5 93 23 97/68 (78) 93 02/09/20 12:00 4.0 31 Intake and Output 02/09/20 02/10/20 19:00 07:00 Intake Total 1315 ml 1348 ml Output Total 275 ml Balance 1315 ml 1073 ml Intake Free Water 80 ml 50 ml IV Total 605 ml 638 ml Tube Feeding 630 ml 660 ml Output Urine Total 275 ml # Voids 1 # Bowel Movements 1 Objective GENERAL: Ill-appearing female.awake HEENT: Negative. The patient's oropharynx is dry. NECK: Supple. No adenopathy. LUNGS: improved breath sounds right lung, reduced left lung. CARDIAC: S1, S2. Slightly tachycardic without murmurs. ABDOMEN: Soft, nontender. G-tube in place. EXTREMITIES: No cyanosis or clubbing. NEUROLOGIC: Confused. Responds to pain x4. Microbiology Date/Time Source Procedure Growth Status 02/08/20 14:00 Other Fluid Gram Stain - Final Resulted 02/08/20 14:00 Other Fluid Body Fluid Culture - Preliminary NO GROWTH AFTER 24 HOURS Resulted 02/08/20 18:00 Nasal Nares MRSA Culture - Final NO METHICILLIN RESISTANT STAPH AUREUS... Complete 02/08/20 09:30 Nasopharynx SARS-CoV-2 RdRp Gene Assay - Final Complete 02/08/20 18:00 Rectum VRE Culture - Final Enterococcus Faecium - Vre Complete Laboratory Tests 02/09/20 12:02: POC Whole Blood Glucose 99 02/09/20 16:42: POC Whole Blood Glucose 114H 02/09/20 23:35: POC Whole Blood Glucose [Pending] 02/10/20 04:28: POC Whole Blood Glucose 117H 02/10/20 09:34: Arterial Blood pH 7.390, Arterial Blood Partial Pressure CO2 53.2H, Arterial Blood Partial Pressure O2 86.3, Arterial Blood HCO3 31.5H, Arterial Blood Oxygen Saturation 95.8, Arterial Blood Base Excess 5.3H, Pal Test Positive Current Medications Medications (Trade) Dose Ordered Sig/Leonard Route PRN Reason Start Time Stop Time Status Last Admin Dose Admin Acetaminophen (Tylenol) 325 mg Q4H PRN GT Mild Pain (Pain Scale 1-3) 02/08/20 08:15 03/09/20 08:14 02/10/20 08:51 Amlodipine Besylate (Norvasc) 5 mg DAILY GT 02/08/20 09:00 03/09/20 08:59 02/08/20 08:56 Aspirin (ASA) 81 mg DAILY GT 02/11/20 09:00 03/27/20 08:59 Aspirin (ASA) 81 mg ONCE GT 02/10/20 12:00 02/10/20 13:00 Atorvastatin Calcium (Lipitor) 80 mg QHS GT 02/08/20 21:00 05/08/20 20:59 02/09/20 20:10 Cefepime HCl 2 gm/ Dextrose 55 ml @ 110 mls/hr EVERY 12 HOURS IVPB 02/09/20 09:00 02/16/20 08:59 02/10/20 08:52 Dextrose (Dextrose 50%) 25 ml Q30M PRN IV Hypoglycemia 02/08/20 09:45 05/08/20 09:44 Dextrose (Dextrose 50%) 50 ml Q30M PRN IV Hypoglycemia 02/08/20 09:45 05/08/20 09:44 Insulin Aspart (NovoLOG) Q6HR SUBQ 02/08/20 12:00 05/08/20 11:59 Lansoprazole (Prevacid) 30 mg DAILY GT 02/08/20 09:00 03/09/20 08:59 02/10/20 08:52 Metoclopramide HCl (Reglan) 10 mg Q6H PRN IVP Nausea & Vomiting 02/08/20 08:15 03/09/20 08:14 Miconazole Nitrate (Miconazole Nitrate) 1 applic BID TOPIC 02/08/20 18:00 05/08/20 17:59 02/10/20 08:52 Sodium Chloride 1,000 ml @ 50 mls/hr Q20H IV 02/08/20 14:15 03/09/20 14:14 02/10/20 04:33 Tramadol HCl (Ultram) 50 mg Q6H PRN GT Moderate Pain (Pain Scale 4-6) 02/08/20 08:30 02/15/20 08:29 02/10/20 10:46 Assessment/Plan Assessment/Plan IMPRESSION: 1. Recurrent pleural effusion, likely due to small cell cancer. 2. 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 3. Chronic respiratory failure. 4. Hypercapnia. 5. Hypoxemia. 6. Severe protein-calorie malnutrition. 7. Hypertension per history. PLAN s/p tap oxygen pain control and monitor onc follow up advance directives prognosis poor expect fluid to reaccumlate may need PlueRX if recurrent tap needed impression, plan, and exam edited and reviewed in detail care discussed with Jose Luis Ortega MD Feb 10, 2020 10:56
[2020-02-10 11:54] LABS: BASOPHILS % (AUTO) 0.7 % (0.0-2.0); EOSINOPHILS % (AUTO) 0.5 % (0.0-3.0); HEMATOCRIT 35.9 % (37.0-47.0); HEMOGLOBIN 11.7 G/DL (12.0-16.0); LYMPHOCYTES % (AUTO) 7.8 % (20.0-45.0); MEAN CORPUSCULAR VOLUME 97 FL (80-99); MONOCYTES % (AUTO) 6.1 % (1.0-10.0); NEUTROPHILS % (AUTO) 84.9 % (45.0-75.0); PLATELET COUNT 394 K/UL (150-450); RED BLOOD COUNT 3.72 M/UL (4.20-5.40); RED CELL DISTRIBUTION WIDTH 14.7 % (11.6-14.8); WHITE BLOOD COUNT 13.4 K/UL (4.8-10.8)
[2020-02-10 11:58] LABS: ANION GAP 4 mmol/L (5-15); BLOOD UREA NITROGEN 20 mg/dL (7-18); CARBON DIOXIDE 36 MMOL/L (21-32); CHLORIDE 100 MMOL/L (98-107); CREATININE 0.5 MG/DL (0.55-1.30); POTASSIUM 4.3 MMOL/L (3.5-5.1); SODIUM 140 MMOL/L (136-145)
[2020-02-10 12:00] VITALS: BP 118/72
[2020-02-10] MEDS ORDERED: Aspirin Baby 81mg GT SCH (12:00)
[2020-02-10 12:05] LABS: ALANINE AMINOTRANSFERASE 41 U/L (12-78); ALBUMIN 2.2 G/DL (3.4-5.0); ALBUMIN/GLOBULIN RATIO 0.6 (1.0-2.7); ALKALINE PHOSPHATASE 94 U/L (46-116); ASPARTATE AMINO TRANSFERASE 32 U/L (15-37); BILIRUBIN,TOTAL 0.2 MG/DL (0.2-1.0)
[2020-02-10 16:00] VITALS: BP 98/93
--- NOTE | 2020-02-10 17:45 | Consultation ---
DATE OF CONSULTATION: 02/10/2020 INFECTIOUS DISEASES CONSULTATION This consult is for coverage of Dr. Still. CONSULTING PHYSICIAN: Robbin Jurado MD. PRIMARY ATTENDING PHYSICIAN: Sterling Petersen MD. REASON FOR CONSULTATION: Sepsis and pneumonia. HISTORY OF PRESENT ILLNESS: This is an 59-year-old white female admitted on 02/08/2020 from a nursing facility after a fall from bed. At the time of admission, had leukocytosis of 17.3 and tachycardia of 113. She has history of lung cancer and had large pleural effusion. At the day of admission, had a thoracentesis with removal of 1400 mL of bloody pleural fluid. PAST MEDICAL HISTORY: Dementia, hypertension, asthma, stage IV small cell cancer of lung, COPD, emphysema, schizophrenia, diabetes mellitus, peptic ulcer. PAST SURGICAL HISTORY: G-tube placement, seems to have left shoulder surgery. ALLERGIES: No known drug allergies. MEDICATIONS: Getting cefepime, Lipitor, miconazole cream, sodium chloride, insulin, amlodipine, Prevacid, metoprolol, Tylenol, metoclopramide. SOCIAL HISTORY: prison resident. Smoking until recently. Has a boyfriend that is present in the bedside. REVIEW OF SYSTEMS: The patient states she feels terrible. Has no significant fever, nausea, or vomiting. No coughing. She has back pain. No problem passing urine. PHYSICAL EXAMINATION: VITAL SIGNS: Temperature 97.5, pulse 94, blood pressure 109/73. GENERAL APPEARANCE: Seems to have normal weight. HEAD AND NECK: Getting oxygen by Venturi mask. HEART: Normal rate. LUNGS: Decreased sounds bilaterally. ABDOMEN: Soft. G-tube. EXTREMITIES: No edema. NEUROLOGIC: Awake and responsive. LABORATORY AND DIAGNOSTIC DATA: WBC yesterday was 11.5, hemoglobin 11.3, hematocrit 34.5, platelets 319. Sodium 140, potassium 3.8, chloride 102, bicarb 35, BUN 3, creatinine 0.5, glucose 107. VRE screen positive. COVID test negative. Culture of pleural fluid so far negative. MRSA screen negative. CT scan of the spine showed T7 compression fracture that seems to be acute. Right shoulder x-ray showed AC joint separation, strain . IMPRESSION: Sepsis with leukocytosis and tachycardia at the time of admission, likely has malignant pleural effusion, cannot rule out underlying pneumonia, has COPD, emphysema, diabetes mellitus, hypertension. RECOMMENDATION: We will continue with cefepime. We will follow up the cultures. At the end of my exam, I thank Dr. Betancur for involving me in the care of this patient. Robbin Jurado M.D. DR: Natacha JOB#: [id number] CC: [email or web address]
[2020-02-10 20:00] VITALS: BP 101/88
[2020-02-10] MEDS: Atorvastatin 80mg tab GT SCH (21:03)
[2020-02-10 23:59] VITALS: BP 110/70
[2020-02-11] MEDS: traMADol 50mg tab GT PRN ×3 (00:51→16:15)
[2020-02-11 04:00] VITALS: BP 105/74
[2020-02-11] MEDS: Acetaminophen 650mg/20.3ml GT PRN (04:23)
[2020-02-11] MEDS: NovoLOG Insulin Flexpen SUBQ SCH ×4 (05:09→23:24)
[2020-02-11 06:28] LABS: BASOPHILS % (AUTO) 0.6 % (0.0-2.0); EOSINOPHILS % (AUTO) 1.5 % (0.0-3.0); HEMOGLOBIN 12.4 G/DL (12.0-16.0); LYMPHOCYTES % (AUTO) 8.6 % (20.0-45.0); MEAN CORPUSCULAR VOLUME 97 FL (80-99); MONOCYTES % (AUTO) 6.2 % (1.0-10.0); NEUTROPHILS % (AUTO) 83.1 % (45.0-75.0); PLATELET COUNT 391 K/UL (150-450); RED BLOOD COUNT 3.91 M/UL (4.20-5.40); RED CELL DISTRIBUTION WIDTH 15.3 % (11.6-14.8); WHITE BLOOD COUNT 12.6 K/UL (4.8-10.8)
[2020-02-11 08:00] VITALS: BP 96/67
--- NOTE | 2020-02-11 08:12 | Pulmonology Progress Note ---
Subjective ROS Limited/Unobtainable: Yes Allergies: Coded Allergies: No Known Allergies (Verified , 09/23/14) Subjective care noted no distress awake comfortable Objective Last 24 Hour Vital Signs Date Time Temp Pulse Resp B/P (MAP) Pulse Ox O2 Delivery O2 Flow Rate FiO2 02/11/20 08:00 97.5 96 22 96/67 (77) 94 02/11/20 04:02 95 02/11/20 04:00 97.6 73 20 105/74 (84) 96 02/11/20 04:00 Nasal Cannula 3.0 02/11/20 00:00 Nasal Cannula 3.0 02/10/20 23:59 96.9 70 20 110/70 (83) 93 02/10/20 23:57 92 02/10/20 20:00 97.0 75 20 101/88 (92) 95 02/10/20 20:00 Nasal Cannula 3.0 02/10/20 19:31 92 02/10/20 17:48 96.4 02/10/20 16:00 3.0 02/10/20 16:00 Nasal Cannula 3.0 02/10/20 16:00 96.4 89 24 98/93 (95) 94 02/10/20 15:20 89 02/10/20 12:00 Simple Mask 4.0 02/10/20 12:00 96.4 88 26 118/72 (87) 93 02/10/20 11:42 86 02/10/20 08:54 94 109/72 02/10/20 08:46 94 109/72 Intake and Output 02/10/20 02/11/20 19:00 07:00 Intake Total 1225 ml 1310 ml Balance 1225 ml 1310 ml Intake Free Water 30 ml 90 ml IV Total 655 ml 500 ml Tube Feeding 540 ml 720 ml # Voids 2 3 # Bowel Movements 2 2 Objective GENERAL: Ill-appearing female.awake HEENT: Negative. The patient's oropharynx is dry. NECK: Supple. No adenopathy. LUNGS: stable breath sounds right lung, reduced left lung. CARDIAC: S1, S2. Slightly tachycardic without murmurs. ABDOMEN: Soft, nontender. G-tube in place. EXTREMITIES: No cyanosis or clubbing. NEUROLOGIC: Confused. Responds to pain x4. Microbiology Date/Time Source Procedure Growth Status 02/08/20 14:00 Other Fluid Gram Stain - Final Resulted 02/08/20 14:00 Other Fluid Body Fluid Culture - Preliminary NO GROWTH AFTER 48 HOURS Resulted 02/08/20 18:00 Nasal Nares MRSA Culture - Final NO METHICILLIN RESISTANT STAPH AUREUS... Complete 02/08/20 09:30 Nasopharynx SARS-CoV-2 RdRp Gene Assay - Final Complete 02/08/20 18:00 Rectum VRE Culture - Final Enterococcus Faecium - Vre Complete Laboratory Tests 02/10/20 09:34: Arterial Blood pH 7.390, Arterial Blood Partial Pressure CO2 53.2H, Arterial Blood Partial Pressure O2 86.3, Arterial Blood HCO3 31.5H, Arterial Blood Oxygen Saturation 95.8, Arterial Blood Base Excess 5.3H, Pal Test Positive 02/10/20 11:17: POC Whole Blood Glucose 146H 02/10/20 11:20: White Blood Count 13.4H, Red Blood Count 3.72L, Hemoglobin 11.7L, Hematocrit 35.9L, Mean Corpuscular Volume 97, Mean Corpuscular Hemoglobin 31.4H, Mean Corpuscular Hemoglobin Concent 32.5, Red Cell Distribution Width 14.7, Platelet Count 394, Mean Platelet Volume 5.8L, Neutrophils (%) (Auto) 84.9H, Lymphocytes (%) (Auto) 7.8L, Monocytes (%) (Auto) 6.1, Eosinophils (%) (Auto) 0.5, Basophils (%) (Auto) 0.7, Sodium Level 140, Potassium Level 4.3, Chloride Level 100, Carbon Dioxide Level 36H, Anion Gap 4L, Blood Urea Nitrogen 20H, Creatinine 0.5L, Estimat Glomerular Filtration Rate > 60, Glucose Level 143H, Calcium Level 9.0, Magnesium Level 1.8, Total Bilirubin 0.2, Aspartate Amino Transf (AST/SGOT) 32, Alanine Aminotransferase (ALT/SGPT) 41, Alkaline Phosphatase 94, Total Protein 6.2L, Albumin 2.2L, Globulin 4.0, Albumin/ Globulin Ratio 0.6L 02/10/20 17:17: POC Whole Blood Glucose 109H 02/10/20 23:39: POC Whole Blood Glucose [Pending] 02/11/20 03:15: White Blood Count 12.6H, Red Blood Count 3.91L, Hemoglobin 12.4, Hematocrit 38.0 , Mean Corpuscular Volume 97, Mean Corpuscular Hemoglobin 31.6H, Mean Corpuscular Hemoglobin Concent 32.5, Red Cell Distribution Width 15.3H, Platelet Count 391, Mean Platelet Volume 5.6L, Neutrophils (%) (Auto) 83.1H, Lymphocytes (%) (Auto) 8.6L, Monocytes (%) (Auto) 6.2, Eosinophils (%) (Auto) 1.5, Basophils (%) (Auto) 0.6, Magnesium Level 1.8, Troponin I 0.000 02/11/20 04:54: POC Whole Blood Glucose 107H Current Medications Medications (Trade) Dose Ordered Sig/Leonard Route PRN Reason Start Time Stop Time Status Last Admin Dose Admin Acetaminophen (Tylenol) 325 mg Q4H PRN GT Mild Pain (Pain Scale 1-3) 02/08/20 08:15 03/09/20 08:14 02/11/20 04:23 Amlodipine Besylate (Norvasc) 5 mg DAILY GT 02/08/20 09:00 03/09/20 08:59 02/08/20 08:56 Aspirin (ASA) 81 mg DAILY GT 02/11/20 09:00 03/27/20 08:59 Atorvastatin Calcium (Lipitor) 80 mg QHS GT 02/08/20 21:00 05/08/20 20:59 02/10/20 21:03 Cefepime HCl 2 gm/ Dextrose 55 ml @ 110 mls/hr EVERY 12 HOURS IVPB 02/09/20 09:00 02/16/20 08:59 02/10/20 21:02 Dextrose (Dextrose 50%) 25 ml Q30M PRN IV Hypoglycemia 02/08/20 09:45 05/08/20 09:44 Dextrose (Dextrose 50%) 50 ml Q30M PRN IV Hypoglycemia 02/08/20 09:45 05/08/20 09:44 Insulin Aspart (NovoLOG) Q6HR SUBQ 02/08/20 12:00 05/08/20 11:59 02/10/20 11:24 Lansoprazole (Prevacid) 30 mg DAILY GT 02/08/20 09:00 03/09/20 08:59 02/10/20 08:52 Metoclopramide HCl (Reglan) 10 mg Q6H PRN IVP Nausea & Vomiting 02/08/20 08:15 03/09/20 08:14 Miconazole Nitrate (Miconazole Nitrate) 1 applic EVERY 12 HOURS TOPIC 02/10/20 21:00 05/08/20 17:59 02/10/20 21:26 Sodium Chloride 1,000 ml @ 50 mls/hr Q20H IV 02/08/20 14:15 03/09/20 14:14 02/11/20 01:17 Tramadol HCl (Ultram) 50 mg Q6H PRN GT Moderate Pain (Pain Scale 4-6) 02/08/20 08:30 02/15/20 08:29 02/11/20 00:51 Assessment/Plan Assessment/Plan IMPRESSION: 1. Recurrent pleural effusion, likely due to small cell cancer. 2. 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 3. Chronic respiratory failure. 4. Hypercapnia. 5. Hypoxemia. 6. Severe protein-calorie malnutrition. 7. Hypertension per history. PLAN monitor effusion oxygen as needed pain control and monitor onc follow up advance directives prognosis poor expect fluid to reaccumlate with advanced cancer may need PlueRX if recurrent tap needed impression, plan, and exam edited and reviewed in detail care discussed with Jose Luis Ortega MD Feb 11, 2020 08:12
[2020-02-11] MEDS: Aspirin Baby 81mg GT SCH (08:19)
[2020-02-11] MEDS: Cefepime HCl 2 GM in D5W 55 ML IVPB SCH ×2 (08:20→20:56)
[2020-02-11] MEDS: Miconazole 2% Cream 30gm TOPIC SCH ×2 (08:21→20:57)
--- NOTE | 2020-02-11 11:05 | Infectious Diseases Prog Note ---
Assessment/Plan Assessment/Plan antibiotics : cefepime A 1. pneumonia COVID 19 negative 2. pleural effusion s/p thoracentesis 3. diabetes mellitus 4. hypertension 5. lung cancer 6. schizophrenia 7. dementia 8. COPD P 1. continue cefepime 4 more days 2. will follow up cultures Subjective ROS Limited/Unobtainable: Yes Allergies: Coded Allergies: No Known Allergies (Verified , 09/23/14) Objective Last 24 Hour Vital Signs Date Time Temp Pulse Resp B/P (MAP) Pulse Ox O2 Delivery O2 Flow Rate FiO2 02/11/20 09:12 97.5 02/11/20 08:20 96 96/67 02/11/20 08:00 Nasal Cannula 3.0 02/11/20 08:00 97.5 96 22 96/67 (77) 94 02/11/20 08:00 95 02/11/20 04:02 95 02/11/20 04:00 97.6 73 20 105/74 (84) 96 02/11/20 04:00 Nasal Cannula 3.0 02/11/20 00:00 Nasal Cannula 3.0 02/10/20 23:59 96.9 70 20 110/70 (83) 93 02/10/20 23:57 92 02/10/20 20:00 97.0 75 20 101/88 (92) 95 02/10/20 20:00 Nasal Cannula 3.0 02/10/20 19:31 92 02/10/20 16:00 3.0 02/10/20 16:00 Nasal Cannula 3.0 02/10/20 16:00 96.4 89 24 98/93 (95) 94 02/10/20 15:20 89 02/10/20 12:00 Simple Mask 4.0 02/10/20 12:00 96.4 88 26 118/72 (87) 93 02/10/20 11:42 86 Height (Feet): 5 Height (Inches): 5.00 Weight (Pounds): 131 Respiratory/Chest: lungs clear Cardiovascular: normal rate, regular rhythm, no gallop/murmur Abdomen: soft, non tender, other - GT Extremities: no edema Microbiology Date/Time Source Procedure Growth Status 02/08/20 14:00 Other Fluid Gram Stain - Final Resulted 02/08/20 14:00 Other Fluid Body Fluid Culture - Preliminary NO GROWTH AFTER 48 HOURS Resulted 02/08/20 18:00 Nasal Nares MRSA Culture - Final NO METHICILLIN RESISTANT STAPH AUREUS... Complete 02/08/20 18:00 Rectum VRE Culture - Final Enterococcus Faecium - Vre Complete Laboratory Tests Test 02/10/20 11:17 02/10/20 11:20 02/10/20 17:17 02/10/20 23:39 POC Whole Blood Glucose 146 MG/DL (74-106) H 109 MG/DL (74-106) H Pending White Blood Count 13.4 K/UL (4.8-10.8) H Red Blood Count 3.72 M/UL (4.20-5.40) L Hemoglobin 11.7 G/DL (12.0-16.0) L Hematocrit 35.9 % (37.0-47.0) L Mean Corpuscular Volume 97 FL (80-99) Mean Corpuscular Hemoglobin 31.4 PG (27.0-31.0) H Mean Corpuscular Hemoglobin Concent 32.5 G/DL (32.0-36.0) Red Cell Distribution Width 14.7 % (11.6-14.8) Platelet Count 394 K/UL (150-450) Mean Platelet Volume 5.8 FL (6.5-10.1) L Neutrophils (%) (Auto) 84.9 % (45.0-75.0) H Lymphocytes (%) (Auto) 7.8 % (20.0-45.0) L Monocytes (%) (Auto) 6.1 % (1.0-10.0) Eosinophils (%) (Auto) 0.5 % (0.0-3.0) Basophils (%) (Auto) 0.7 % (0.0-2.0) Sodium Level 140 MMOL/L (136-145) Potassium Level 4.3 MMOL/L (3.5-5.1) Chloride Level 100 MMOL/L (98-107) Carbon Dioxide Level 36 MMOL/L (21-32) H Anion Gap 4 mmol/L (5-15) L Blood Urea Nitrogen 20 mg/dL (7-18) H Creatinine 0.5 MG/DL (0.55-1.30) L Estimat Glomerular Filtration Rate > 60 mL/min (>60) Glucose Level 143 MG/DL (74-106) H Calcium Level 9.0 MG/DL (8.5-10.1) Magnesium Level 1.8 MG/DL (1.8-2.4) Total Bilirubin 0.2 MG/DL (0.2-1.0) Aspartate Amino Transf (AST/SGOT) 32 U/L (15-37) Alanine Aminotransferase (ALT/SGPT) 41 U/L (12-78) Alkaline Phosphatase 94 U/L (46-116) Total Protein 6.2 G/DL (6.4-8.2) L Albumin 2.2 G/DL (3.4-5.0) L Globulin 4.0 g/dL Albumin/Globulin Ratio 0.6 (1.0-2.7) L Test 02/11/20 03:15 02/11/20 04:54 White Blood Count 12.6 K/UL (4.8-10.8) H Red Blood Count 3.91 M/UL (4.20-5.40) L Hemoglobin 12.4 G/DL (12.0-16.0) Hematocrit 38.0 % (37.0-47.0) Mean Corpuscular Volume 97 FL (80-99) Mean Corpuscular Hemoglobin 31.6 PG (27.0-31.0) H Mean Corpuscular Hemoglobin Concent 32.5 G/DL (32.0-36.0) Red Cell Distribution Width 15.3 % (11.6-14.8) H Platelet Count 391 K/UL (150-450) Mean Platelet Volume 5.6 FL (6.5-10.1) L Neutrophils (%) (Auto) 83.1 % (45.0-75.0) H Lymphocytes (%) (Auto) 8.6 % (20.0-45.0) L Monocytes (%) (Auto) 6.2 % (1.0-10.0) Eosinophils (%) (Auto) 1.5 % (0.0-3.0) Basophils (%) (Auto) 0.6 % (0.0-2.0) Magnesium Level 1.8 MG/DL (1.8-2.4) Troponin I 0.000 ng/mL (0.000-0.056) POC Whole Blood Glucose 107 MG/DL (74-106) H Current Medications Medications (Trade) Dose Ordered Sig/Leonard Route PRN Reason Start Time Stop Time Status Last Admin Dose Admin Acetaminophen (Tylenol) 325 mg Q4H PRN GT Mild Pain (Pain Scale 1-3) 02/08/20 08:15 03/09/20 08:14 02/11/20 04:23 Amlodipine Besylate (Norvasc) 5 mg DAILY GT 02/08/20 09:00 03/09/20 08:59 02/08/20 08:56 Aspirin (ASA) 81 mg DAILY GT 02/11/20 09:00 03/27/20 08:59 02/11/20 08:19 Atorvastatin Calcium (Lipitor) 80 mg QHS GT 02/08/20 21:00 05/08/20 20:59 02/10/20 21:03 Cefepime HCl 2 gm/ Dextrose 55 ml @ 110 mls/hr EVERY 12 HOURS IVPB 02/09/20 09:00 02/16/20 08:59 02/11/20 08:20 Dextrose (Dextrose 50%) 25 ml Q30M PRN IV Hypoglycemia 02/08/20 09:45 05/08/20 09:44 Dextrose (Dextrose 50%) 50 ml Q30M PRN IV Hypoglycemia 02/08/20 09:45 05/08/20 09:44 Insulin Aspart (NovoLOG) Q6HR SUBQ 02/08/20 12:00 05/08/20 11:59 02/10/20 11:24 Lansoprazole (Prevacid) 30 mg DAILY GT 02/08/20 09:00 03/09/20 08:59 02/11/20 08:18 Metoclopramide HCl (Reglan) 10 mg Q6H PRN IVP Nausea & Vomiting 02/08/20 08:15 03/09/20 08:14 Miconazole Nitrate (Miconazole Nitrate) 1 applic EVERY 12 HOURS TOPIC 02/10/20 21:00 05/08/20 17:59 02/11/20 08:21 Sodium Chloride 1,000 ml @ 50 mls/hr Q20H IV 02/08/20 14:15 03/09/20 14:14 02/11/20 01:17 Tramadol HCl (Ultram) 50 mg Q6H PRN GT Moderate Pain (Pain Scale 4-6) 02/08/20 08:30 02/15/20 08:29 02/11/20 08:19 Judith Still MD Feb 11, 2020 11:05
[2020-02-11 12:00] VITALS: BP 109/77
--- NOTE | 2020-02-11 12:50 | General Progress Note ---
Assessment/Plan Assessment/Plan: Metastatic Lung CA Metastatic Neuroendocrine CA Recurrent Pleural Effusions - s/p Tap. Needs Pleurex. COPD. Avoid narcotics. High risk of respiratory failure. AODM - under control. Overall poor prognosis Subjective Allergies: Coded Allergies: No Known Allergies (Verified , 09/23/14) Subjective obtunded Objective Last 24 Hour Vital Signs Date Time Temp Pulse Resp B/P (MAP) Pulse Ox O2 Delivery O2 Flow Rate FiO2 02/11/20 11:59 75 02/11/20 09:12 97.5 02/11/20 08:20 96 96/67 02/11/20 08:00 Nasal Cannula 3.0 02/11/20 08:00 97.5 96 22 96/67 (77) 94 02/11/20 08:00 95 02/11/20 04:02 95 02/11/20 04:00 97.6 73 20 105/74 (84) 96 02/11/20 04:00 Nasal Cannula 3.0 02/11/20 00:00 Nasal Cannula 3.0 02/10/20 23:59 96.9 70 20 110/70 (83) 93 02/10/20 23:57 92 02/10/20 20:00 97.0 75 20 101/88 (92) 95 02/10/20 20:00 Nasal Cannula 3.0 02/10/20 19:31 92 02/10/20 16:00 3.0 02/10/20 16:00 Nasal Cannula 3.0 02/10/20 16:00 96.4 89 24 98/93 (95) 94 02/10/20 15:20 89 Intake and Output 02/10/20 02/11/20 19:00 07:00 Intake Total 1225 ml 1310 ml Balance 1225 ml 1310 ml Intake Free Water 30 ml 90 ml IV Total 655 ml 500 ml Tube Feeding 540 ml 720 ml # Voids 2 3 # Bowel Movements 2 2 Laboratory Tests 02/10/20 17:17: POC Whole Blood Glucose 109H 02/10/20 23:39: POC Whole Blood Glucose [Pending] 02/11/20 03:15: White Blood Count 12.6H, Red Blood Count 3.91L, Hemoglobin 12.4, Hematocrit 38.0 , Mean Corpuscular Volume 97, Mean Corpuscular Hemoglobin 31.6H, Mean Corpuscular Hemoglobin Concent 32.5, Red Cell Distribution Width 15.3H, Platelet Count 391, Mean Platelet Volume 5.6L, Neutrophils (%) (Auto) 83.1H, Lymphocytes (%) (Auto) 8.6L, Monocytes (%) (Auto) 6.2, Eosinophils (%) (Auto) 1.5, Basophils (%) (Auto) 0.6, Magnesium Level 1.8, Troponin I 0.000 02/11/20 04:54: POC Whole Blood Glucose 107H 02/11/20 11:26: POC Whole Blood Glucose 109H Height (Feet): 5 Height (Inches): 5.00 Weight (Pounds): 131 Objective Confused. CV RR Lungs B sherie Garcia SNT BS + E No CCE Sterling Petersen MD Feb 11, 2020 12:50
[2020-02-11] MEDS ORDERED: NS 275ml ONE (15:53)
[2020-02-11 16:00] VITALS: BP 114/79
--- NOTE | 2020-02-11 16:58 | Diagnostic Imaging Report ---
Indication: Shortness of breath Technique: One view of the chest Comparison: 02/08/2020 Findings: Interim complete opacification of the right hemithorax, presumably due to reaccumulation of pleural fluid, typically as the mediastinum is somewhat shifted to the left. The left lung demonstrates interstitial prominence as well as crowding of the bronchovascular markings. The heart size is probably normal. Vascular embolization coils are seen in the upper abdomen. Impression: Complete opacification right hemithorax, presumably due to reaccumulated large pleural effusion
--- NOTE | 2020-02-11 19:57 | Diagnostic Imaging Report ---
INDICATION: Status post thoracentesis. COMPARISON: 02/11/2020 at 1352 FINDINGS/impression: Interval decrease in size of a now moderate right pleural effusion. No clinically significant pneumothorax. Persistent small left pleural effusion, increased in size. Right lower lobe atelectasis versus consolidation. Mild left lower lobe atelectasis. Persistent interstitial pulmonary edema. No other significant change from the prior exam.
[2020-02-11 20:00] VITALS: BP 115/75
--- NOTE | 2020-02-11 20:47 | Pre-Procedure Note/Attestation ---
Pre-Procedure Note/Attestation Complete Prior to Procedure Planned Procedure: right Procedure Narrative: thoracentesis Indications for Procedure Pre-Operative Diagnosis: pleural effusion Attestation I attest that I discussed the nature of the procedure; its benefits; risks and complications; and alternatives (and the risks and benefits of such alternatives ), prior to the procedure, with the patient (or the patient's legal insurance service representative). I attest that, if there was a reasonable possibility of needing a blood transfusion, the patient (or the patient's legal insurance service representative) was given the [facility] standardized written summary, pursuant to the [place] Blood Safety Act ([place] Health and Safety Code # 1645, as amended). I attest that I re-evaluated the patient just prior to the surgery and that there has been no change in the patient's H&P, except as documented below: Discussed by phone with pt's. son at 1700 Jose Lam MD Feb 11, 2020 20:47
--- NOTE | 2020-02-11 20:48 | Brief Operative Note ---
Immediate Post Operative Note Operative Note Pre-op Diagnosis: pleural effusion Procedure: thoracentesis R Post-op Diagnosis: same as pre-op Surgeon: Ciarra Pérez Anesthesia: local Specimen: none Complications: none Fluids: none Implant(s) used?: No Jose Pérez MD Feb 11, 2020 20:48
[2020-02-11] MEDS: Atorvastatin 80mg tab GT SCH (20:56)
--- NOTE | 2020-02-11 23:00 | Consultation ---
DATE OF CONSULTATION: 02/11/2020 ORTHOPEDIC CONSULTATION CONSULTING PHYSICIAN: Bobby Angel MD CHIEF COMPLAINT: Right shoulder. HISTORY OF PRESENT ILLNESS: Patient is a 59-year-old female who [facility] with complaints of right shoulder pain. She was noted to have pleural effusion and has been having some cardiac issues. She does complain of right shoulder pain. She had imaging studies, which showed a possible AC joint separation and therefore Orthopedic consultation obtained for further care and recommendation. PAST MEDICAL HISTORY: Diabetes, hypertension, lung cancer, schizophrenia, dementia, COPD. SURGICAL HISTORY: Reviewed from the intake chart. MEDICATIONS: Reviewed from the intake chart. SOCIAL HISTORY: Reviewed from the intake chart. PHYSICAL EXAMINATION: GENERAL: Patient is in bed. VITAL SIGNS: Afebrile. Stable vital signs. EXTREMITIES: She has pain in the right shoulder. Has joint crepitus. Neurovascular exam is normal. IMAGING STUDY: Show AC joint separation with some secondary arthritis of the shoulder joint. ASSESSMENT: Right chronic AC joint separation. DISCUSSION: At this point, I do not think she has an acute injury. I think if anything, this is something that may be more related to her underlying pulmonary issue rather than shoulder issues. At this point, what I recommend is optimize her medical condition. As relates to her shoulder, there is no restriction. She will be weightbearing as tolerated. Formal outpatient physical therapy may be of benefit. If she still has issues, then consideration for possible cortisone injection is reasonable. She is currently not a surgical candidate for AC joint reconstruction given her . Bobby Angel M.D. DR: MO JOB#: [id number] CC:
[2020-02-12] VITALS: BP 103/72
[2020-02-12] MEDS: traMADol 50mg tab GT PRN ×4 (03:17→23:25)
[2020-02-12 04:00] VITALS: BP 113/80
[2020-02-12 05:19] LABS: HEMOGLOBIN 12.7 G/DL (12.0-16.0); MEAN CORPUSCULAR VOLUME 96 FL (80-99); PLATELET COUNT 388 K/UL (150-450); RED BLOOD COUNT 3.95 M/UL (4.20-5.40); WHITE BLOOD COUNT 15.3 K/UL (4.8-10.8)
[2020-02-12 05:39] LABS: ANION GAP 1 mmol/L (5-15); BLOOD UREA NITROGEN 15 mg/dL (7-18); CALCIUM 9.3 MG/DL (8.5-10.1); CARBON DIOXIDE 37 MMOL/L (21-32); CHLORIDE 97 MMOL/L (98-107); POTASSIUM 4.3 MMOL/L (3.5-5.1); SODIUM 135 MMOL/L (136-145)
[2020-02-12] MEDS: NovoLOG Insulin Flexpen SUBQ SCH ×4 (06:00→23:25)
[2020-02-12 07:09] LABS: CREATININE 0.4 MG/DL (0.55-1.30)
--- NOTE | 2020-02-12 07:51 | Pulmonology Progress Note ---
Subjective ROS Limited/Unobtainable: Yes Allergies: Coded Allergies: No Known Allergies (Verified , 09/23/14) Subjective care noted no distress- recurrent effusions awake comfortable Objective Last 24 Hour Vital Signs Date Time Temp Pulse Resp B/P (MAP) Pulse Ox O2 Delivery O2 Flow Rate FiO2 02/12/20 04:00 Nasal Cannula 3.0 02/12/20 04:00 97.1 90 20 113/80 (91) 94 02/12/20 03:47 97.9 02/12/20 03:42 95 02/12/20 00:00 97.5 88 20 103/72 (82) 95 02/12/20 00:00 Nasal Cannula 3.0 02/12/20 00:00 105 02/11/20 20:00 105 02/11/20 20:00 Nasal Cannula 3.0 02/11/20 20:00 97.7 90 20 115/75 (88) 96 02/11/20 16:00 97.3 99 22 114/79 (91) 96 02/11/20 16:00 Nasal Cannula 3.0 02/11/20 16:00 98 02/11/20 12:00 98.0 80 22 109/77 (88) 96 02/11/20 12:00 Nasal Cannula 3.0 02/11/20 11:59 75 02/11/20 08:20 96 96/67 02/11/20 08:00 Nasal Cannula 3.0 02/11/20 08:00 97.5 96 22 96/67 (77) 94 02/11/20 08:00 95 Intake and Output 02/11/20 02/12/20 19:00 07:00 Intake Total 1245 ml 1143.33 ml Output Total 2800 ml 300 ml Balance -1555 ml 843.33 ml Intake Free Water 60 ml IV Total 705 ml 483.33 ml Tube Feeding 480 ml 660 ml Output Urine Total 800 ml 300 ml Other 2000 ml # Voids 2 # Bowel Movements 3 2 Objective GENERAL: Ill-appearing female.awake HEENT: Negative. The patient's oropharynx is dry. NECK: Supple. No adenopathy. LUNGS: reduced breath sounds right lung, reduced left lung. CARDIAC: S1, S2. Slightly tachycardic without murmurs. ABDOMEN: Soft, nontender. G-tube in place. EXTREMITIES: No cyanosis or clubbing. NEUROLOGIC: Confused. Responds to pain x4. Laboratory Tests 02/11/20 11:26: POC Whole Blood Glucose 109H 02/11/20 16:16: POC Whole Blood Glucose 133H 02/11/20 21:52: POC Whole Blood Glucose [Pending] 02/11/20 23:24: POC Whole Blood Glucose [Pending] 02/12/20 03:40: White Blood Count 15.3H, Red Blood Count 3.95L, Hemoglobin 12.7, Hematocrit 38.0 , Mean Corpuscular Volume 96, Mean Corpuscular Hemoglobin 32.2H, Mean Corpuscular Hemoglobin Concent 33.4, Red Cell Distribution Width 15.0H, Platelet Count 388, Mean Platelet Volume 6.1L, Neutrophils (%) (Auto) , Lymphocytes (%) (Auto) , Monocytes (%) (Auto) , Eosinophils (%) (Auto) , Basophils (%) (Auto) , Neutrophils % (Manual) [Pending], Lymphocytes % (Manual) [Pending], Platelet Estimate [Pending], Platelet Morphology [Pending], Sodium Level 135L, Potassium Level 4.3, Chloride Level 97L, Carbon Dioxide Level 37H, Anion Gap 1L, Blood Urea Nitrogen 15, Creatinine 0.4L, Estimat Glomerular Filtration Rate > 60, Glucose Level 109H, Calcium Level 9.3 02/12/20 06:06: POC Whole Blood Glucose 123H Current Medications Medications (Trade) Dose Ordered Sig/Leonard Route PRN Reason Start Time Stop Time Status Last Admin Dose Admin Acetaminophen (Tylenol) 325 mg Q4H PRN GT Mild Pain (Pain Scale 1-3) 02/08/20 08:15 03/09/20 08:14 02/11/20 04:23 Amlodipine Besylate (Norvasc) 5 mg DAILY GT 02/08/20 09:00 03/09/20 08:59 02/08/20 08:56 Aspirin (ASA) 81 mg DAILY GT 02/11/20 09:00 03/27/20 08:59 02/11/20 08:19 Atorvastatin Calcium (Lipitor) 80 mg QHS GT 02/08/20 21:00 05/08/20 20:59 02/11/20 20:56 Cefepime HCl 2 gm/ Dextrose 55 ml @ 110 mls/hr EVERY 12 HOURS IVPB 02/09/20 09:00 02/16/20 08:59 02/11/20 20:56 Dextrose (Dextrose 50%) 25 ml Q30M PRN IV Hypoglycemia 02/08/20 09:45 05/08/20 09:44 Dextrose (Dextrose 50%) 50 ml Q30M PRN IV Hypoglycemia 02/08/20 09:45 05/08/20 09:44 Insulin Aspart (NovoLOG) Q6HR SUBQ 02/08/20 12:00 05/08/20 11:59 02/10/20 11:24 Lansoprazole (Prevacid) 30 mg DAILY GT 02/08/20 09:00 03/09/20 08:59 02/11/20 08:18 Metoclopramide HCl (Reglan) 10 mg Q6H PRN IVP Nausea & Vomiting 02/08/20 08:15 03/09/20 08:14 Miconazole Nitrate (Miconazole Nitrate) 1 applic EVERY 12 HOURS TOPIC 02/10/20 21:00 05/08/20 17:59 02/11/20 20:57 Sodium Chloride 1,000 ml @ 50 mls/hr Q20H IV 02/08/20 14:15 03/09/20 14:14 02/11/20 23:26 Tramadol HCl (Ultram) 50 mg Q6H PRN GT Moderate Pain (Pain Scale 4-6) 02/08/20 08:30 02/15/20 08:29 02/12/20 03:17 Assessment/Plan Assessment/Plan IMPRESSION: 1. Recurrent pleural effusion, likely due to small cell cancer. 2. 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 3. Chronic respiratory failure. 4. Hypercapnia. 5. Hypoxemia. 6. Severe protein-calorie malnutrition. 7. Hypertension per history. PLAN monitor effusion oxygen as needed pain control and monitor onc follow up advance directives prognosis poor expect fluid to reaccumlate with advanced cancer will need pleuRX catheter will call thoracic to see impression, plan, and exam edited and reviewed in detail care discussed with Jose Luis Ortega MD Feb 12, 2020 07:51
[2020-02-12 08:00] VITALS: BP 115/82
[2020-02-12] MEDS: Aspirin Baby 81mg GT SCH (08:24)
[2020-02-12] MEDS: Cefepime HCl 2 GM in D5W 55 ML IVPB SCH ×2 (08:24→20:22)
[2020-02-12] MEDS: Miconazole 2% Cream 30gm TOPIC SCH ×2 (08:24→20:22)
--- NOTE | 2020-02-12 10:46 | Infectious Diseases Prog Note ---
Assessment/Plan Assessment/Plan antibiotics : cefepime A 1. pneumonia COVID 19 negative 2. pleural effusion s/p thoracentesis 3. diabetes mellitus 4. hypertension 5. lung cancer 6. schizophrenia 7. dementia 8. COPD P 1. continue cefepime 3 more days 2. will follow up cultures Subjective ROS Limited/Unobtainable: Yes Allergies: Coded Allergies: No Known Allergies (Verified , 09/23/14) Objective Last 24 Hour Vital Signs Date Time Temp Pulse Resp B/P (MAP) Pulse Ox O2 Delivery O2 Flow Rate FiO2 02/12/20 08:24 92 115/82 02/12/20 08:00 97.7 92 22 115/82 (93) 94 02/12/20 08:00 Nasal Cannula 3.0 02/12/20 07:42 88 02/12/20 04:00 Nasal Cannula 3.0 02/12/20 04:00 97.1 90 20 113/80 (91) 94 02/12/20 03:47 97.9 02/12/20 03:42 95 02/12/20 00:00 97.5 88 20 103/72 (82) 95 02/12/20 00:00 Nasal Cannula 3.0 02/12/20 00:00 105 02/11/20 20:00 105 02/11/20 20:00 Nasal Cannula 3.0 02/11/20 20:00 97.7 90 20 115/75 (88) 96 02/11/20 16:00 97.3 99 22 114/79 (91) 96 02/11/20 16:00 Nasal Cannula 3.0 02/11/20 16:00 98 02/11/20 12:00 98.0 80 22 109/77 (88) 96 02/11/20 12:00 Nasal Cannula 3.0 02/11/20 11:59 75 Height (Feet): 5 Height (Inches): 5.00 Weight (Pounds): 129 Respiratory/Chest: lungs clear Cardiovascular: normal rate, regular rhythm, no gallop/murmur Abdomen: soft, non tender, other - GT Extremities: no edema Laboratory Tests Test 02/11/20 11:26 02/11/20 16:16 02/11/20 21:52 02/11/20 23:24 POC Whole Blood Glucose 109 MG/DL (74-106) H 133 MG/DL (74-106) H Pending Pending Test 02/12/20 03:40 02/12/20 06:06 White Blood Count 15.3 K/UL (4.8-10.8) H Red Blood Count 3.95 M/UL (4.20-5.40) L Hemoglobin 12.7 G/DL (12.0-16.0) Hematocrit 38.0 % (37.0-47.0) Mean Corpuscular Volume 96 FL (80-99) Mean Corpuscular Hemoglobin 32.2 PG (27.0-31.0) H Mean Corpuscular Hemoglobin Concent 33.4 G/DL (32.0-36.0) Red Cell Distribution Width 15.0 % (11.6-14.8) H Platelet Count 388 K/UL (150-450) Mean Platelet Volume 6.1 FL (6.5-10.1) L Neutrophils (%) (Auto) % (45.0-75.0) Lymphocytes (%) (Auto) % (20.0-45.0) Monocytes (%) (Auto) % (1.0-10.0) Eosinophils (%) (Auto) % (0.0-3.0) Basophils (%) (Auto) % (0.0-2.0) Differential Total Cells Counted 100 Neutrophils % (Manual) 87 % (45-75) H Lymphocytes % (Manual) 7 % (20-45) L Monocytes % (Manual) 6 % (1-10) Eosinophils % (Manual) 0 % (0-3) Basophils % (Manual) 0 % (0-2) Band Neutrophils 0 % (0-8) Platelet Estimate Adequate Platelet Morphology Normal Polychromasia 1+ Anisocytosis 1+ Sodium Level 135 MMOL/L (136-145) L Potassium Level 4.3 MMOL/L (3.5-5.1) Chloride Level 97 MMOL/L (98-107) L Carbon Dioxide Level 37 MMOL/L (21-32) H Anion Gap 1 mmol/L (5-15) L Blood Urea Nitrogen 15 mg/dL (7-18) Creatinine 0.4 MG/DL (0.55-1.30) L Estimat Glomerular Filtration Rate > 60 mL/min (>60) Glucose Level 109 MG/DL (74-106) H Calcium Level 9.3 MG/DL (8.5-10.1) POC Whole Blood Glucose 123 MG/DL (74-106) H Current Medications Medications (Trade) Dose Ordered Sig/Leonard Route PRN Reason Start Time Stop Time Status Last Admin Dose Admin Acetaminophen (Tylenol) 325 mg Q4H PRN GT Mild Pain (Pain Scale 1-3) 02/08/20 08:15 03/09/20 08:14 02/11/20 04:23 Amlodipine Besylate (Norvasc) 5 mg DAILY GT 02/08/20 09:00 03/09/20 08:59 02/12/20 08:24 Aspirin (ASA) 81 mg DAILY GT 02/11/20 09:00 03/27/20 08:59 02/12/20 08:24 Atorvastatin Calcium (Lipitor) 80 mg QHS GT 02/08/20 21:00 05/08/20 20:59 02/11/20 20:56 Cefepime HCl 2 gm/ Dextrose 55 ml @ 110 mls/hr EVERY 12 HOURS IVPB 02/09/20 09:00 02/16/20 08:59 02/12/20 08:24 Dextrose (Dextrose 50%) 25 ml Q30M PRN IV Hypoglycemia 02/08/20 09:45 05/08/20 09:44 Dextrose (Dextrose 50%) 50 ml Q30M PRN IV Hypoglycemia 02/08/20 09:45 05/08/20 09:44 Insulin Aspart (NovoLOG) Q6HR SUBQ 02/08/20 12:00 05/08/20 11:59 02/10/20 11:24 Lansoprazole (Prevacid) 30 mg DAILY GT 02/08/20 09:00 03/09/20 08:59 02/12/20 08:24 Metoclopramide HCl (Reglan) 10 mg Q6H PRN IVP Nausea & Vomiting 02/08/20 08:15 03/09/20 08:14 Miconazole Nitrate (Miconazole Nitrate) 1 applic EVERY 12 HOURS TOPIC 02/10/20 21:00 05/08/20 17:59 02/12/20 08:24 Sodium Chloride 1,000 ml @ 50 mls/hr Q20H IV 02/08/20 14:15 03/09/20 14:14 02/11/20 23:26 Tramadol HCl (Ultram) 50 mg Q6H PRN GT Moderate Pain (Pain Scale 4-6) 02/08/20 08:30 02/15/20 08:29 02/12/20 10:31 Judith Still MD Feb 12, 2020 10:46
[2020-02-12 12:00] VITALS: BP 106/75
[2020-02-12] MEDS: Acetaminophen 650mg/20.3ml GT PRN (13:41)
--- NOTE | 2020-02-12 14:19 | General Progress Note ---
Assessment/Plan Assessment/Plan: Metastatic Lung CA Metastatic Neuroendocrine CA Recurrent Pleural Effusions - s/p Tap. Needs repeat Tap. Needs Pleurex. ISH Dunlap. COPD. Avoid narcotics. High risk of respiratory failure. AODM - under control. T4 Fracture. Per Ortho. Overall poor prognosis! Subjective Allergies: Coded Allergies: No Known Allergies (Verified , 09/23/14) Subjective obtunded Objective Last 24 Hour Vital Signs Date Time Temp Pulse Resp B/P (MAP) Pulse Ox O2 Delivery O2 Flow Rate FiO2 02/12/20 12:00 98.8 95 22 106/75 (85) 95 02/12/20 12:00 Nasal Cannula 3.0 02/12/20 11:42 88 02/12/20 11:01 97.7 02/12/20 08:24 92 115/82 02/12/20 08:00 97.7 92 22 115/82 (93) 94 02/12/20 08:00 Nasal Cannula 3.0 02/12/20 07:42 88 02/12/20 04:00 Nasal Cannula 3.0 02/12/20 04:00 97.1 90 20 113/80 (91) 94 02/12/20 03:42 95 02/12/20 00:00 97.5 88 20 103/72 (82) 95 02/12/20 00:00 Nasal Cannula 3.0 02/12/20 00:00 105 02/11/20 20:00 105 02/11/20 20:00 Nasal Cannula 3.0 02/11/20 20:00 97.7 90 20 115/75 (88) 96 02/11/20 16:00 97.3 99 22 114/79 (91) 96 02/11/20 16:00 Nasal Cannula 3.0 02/11/20 16:00 98 Intake and Output 02/11/20 02/12/20 19:00 07:00 Intake Total 1245 ml 1193.33 ml Output Total 2800 ml 300 ml Balance -1555 ml 893.33 ml Intake Free Water 60 ml IV Total 705 ml 533.33 ml Tube Feeding 480 ml 660 ml Output Urine Total 800 ml 300 ml Other 2000 ml # Voids 2 # Bowel Movements 3 2 Laboratory Tests 02/11/20 16:16: POC Whole Blood Glucose 133H 02/11/20 21:52: POC Whole Blood Glucose [Pending] 02/11/20 23:24: POC Whole Blood Glucose [Pending] 02/12/20 03:40: White Blood Count 15.3H, Red Blood Count 3.95L, Hemoglobin 12.7, Hematocrit 38.0 , Mean Corpuscular Volume 96, Mean Corpuscular Hemoglobin 32.2H, Mean Corpuscular Hemoglobin Concent 33.4, Red Cell Distribution Width 15.0H, Platelet Count 388, Mean Platelet Volume 6.1L, Neutrophils (%) (Auto) , Lymphocytes (%) (Auto) , Monocytes (%) (Auto) , Eosinophils (%) (Auto) , Basophils (%) (Auto) , Differential Total Cells Counted 100, Neutrophils % ( Manual) 87H, Lymphocytes % (Manual) 7L, Monocytes % (Manual) 6, Eosinophils % ( Manual) 0, Basophils % (Manual) 0, Band Neutrophils 0, Platelet Estimate Adequate, Platelet Morphology Normal, Polychromasia 1+, Anisocytosis 1+, Sodium Level 135L, Potassium Level 4.3, Chloride Level 97L, Carbon Dioxide Level 37H, Anion Gap 1L, Blood Urea Nitrogen 15, Creatinine 0.4L, Estimat Glomerular Filtration Rate > 60, Glucose Level 109H, Calcium Level 9.3 02/12/20 06:06: POC Whole Blood Glucose 123H 02/12/20 12:03: POC Whole Blood Glucose [Pending] Height (Feet): 5 Height (Inches): 5.00 Weight (Pounds): 129 Objective Confused. CV RR Lungs B sherie Garcia SNT BS + E No CCE Sterling Petersen MD Feb 12, 2020 14:19
[2020-02-12 16:00] VITALS: BP 129/78
--- NOTE | 2020-02-12 16:37 | Diagnostic Imaging Report ---
Indications: Pleural effusion Technique: Informed consent obtained prior present of the procedure from the patient's son. Prior imaging studies reviewed. Procedural timeout performed. Ultrasound used to localize optimal puncture site. Sterile prepping and draping right chest. Local anesthesia with 1% lidocaine. Under real-time ultrasound guidance, puncture pleural space using thoracentesis needle. Stylet removed. Catheter placed to vacuum bottle suction. Total 2000 milliliters of slightly blood-tinged fluid aspirated. Patient tolerated procedure well, without immediate complication. Findings: Followup sonography demonstrates complete resolution of pleural fluid. Subsequent chest radiograph obtained, demonstrating partial reaeration of the right lung and no evidence of pneumothorax Impression: Successful ultrasound-guided thoracentesis, yielding 2000 milliliters of fluid
--- NOTE | 2020-02-12 18:29 | Consultation ---
DATE OF CONSULTATION: 02/12/2020 CONSULTING PHYSICIAN/SURGEON: Haja Dawn MD. REFERRING PHYSICIAN: Jose Luis Dunlap MD HISTORY OF PRESENT ILLNESS: The patient is a 59-year-old female with history of small-cell lung cancer, who presented status post fall at a custodial. Workup at [facility] demonstrated a large right-sided pleural effusion for which she underwent thoracentesis x2. Thoracic surgeon was then consulted for placement of the PleurX catheter. PAST MEDICAL HISTORY: 1. Notable for stage IV small-cell lung cancer. 2. COPD. 3. Emphysema. 4. Hypertension. 5. Schizophrenia. 6. Peptic ulcer disease. PAST SURGICAL HISTORY: Notable for G-tube placement. MEDICATIONS: Reviewed. ALLERGIES: The patient has no known drug allergies. PHYSICAL EXAMINATION: VITAL SIGNS: She is noted to be afebrile. Her vitals are within normal limits. CARDIAC: Regular rate and rhythm. No gallops. No murmur. RESPIRATORY: Clear to auscultation on the left with decreased and crackles noted on the right. ABDOMEN: Soft, nondistended, and nontender with normoactive bowel sounds. G-tube. No drains in place. EXTREMITIES: Showed no evidence of cyanosis, clubbing, or edema. LABORATORY AND DIAGNOSTIC DATA: Laboratory studies performed on February 12, 2020, show a WBC of 15, hemoglobin of 13, hematocrit of 38, and platelet count of 388,000. Sodium is 135, potassium 4.3, chloride 97, bicarb is 37, BUN is 15, creatinine 0.4, and glucose is 60. PT is 11, PTT 32, INR is 1.0. Chest CT scan was performed on February 08, 2020, shows a large right pleural effusion with atelectasis of the entire right lung. There is nodular area throughout the entire right pleura suspicious for metastatic implants. There is central lobular emphysematous changes. There is also mediastinal adenopathy. ASSESSMENT AND PLAN: This is a 59-year-old female who presented with a recurrent right-sided pleural effusion associated with small-cell lung cancer. The patient was evaluated at bedside. After reviewing the clinical database, I recommend she undergo a right exploratory video-assisted thoracoscopic surgery with PleurX catheter placement. I want to thank you for referring this patient to my attention. If any questions in regard to this patient's clinical care, please do not hesitate to contact me. Almendarez M.D. DR: Chidi JOB#: [id number] CC: ANTONI
[2020-02-12 20:00] VITALS: BP_SYST 103; BP_SYST 93; BP_DIAS 65; BP_DIAS 71
[2020-02-12] MEDS: Atorvastatin 80mg tab GT SCH (20:22)
[2020-02-13] VITALS (7 sets, daily range): BP systolic 95–112; BP diastolic 56–79
[2020-02-13] MEDS: NovoLOG Insulin Flexpen SUBQ SCH ×4 (05:33→23:11)
[2020-02-13] MEDS: Cefepime HCl 2 GM in D5W 55 ML IVPB SCH (08:11)
[2020-02-13] MEDS: Aspirin Baby 81mg GT SCH (08:12)
[2020-02-13] MEDS: traMADol 50mg tab GT PRN (08:13)
--- NOTE | 2020-02-13 09:10 | Pulmonology Progress Note ---
Subjective ROS Limited/Unobtainable: Yes Allergies: Coded Allergies: No Known Allergies (Verified , 09/23/14) Subjective care noted no distress- recurrent effusions s/p tap x 2 awake comfortable Objective Last 24 Hour Vital Signs Date Time Temp Pulse Resp B/P (MAP) Pulse Ox O2 Delivery O2 Flow Rate FiO2 02/13/20 08:13 87 107/82 02/13/20 04:00 98.0 88 20 112/79 (90) 96 02/13/20 04:00 Nasal Cannula 3.0 02/13/20 04:00 87 02/13/20 00:00 90 02/13/20 00:00 97.6 93 20 95/64 (74) 97 02/13/20 00:00 Nasal Cannula 3.0 02/12/20 20:00 98.0 75 20 103/71 (82) 98 02/12/20 20:00 88 02/12/20 20:00 Nasal Cannula 3.0 02/12/20 17:19 98.7 02/12/20 16:00 Nasal Cannula 3.0 02/12/20 16:00 98.7 98 21 129/78 (95) 98 02/12/20 15:32 87 02/12/20 14:11 98.8 02/12/20 12:00 98.8 95 22 106/75 (85) 95 02/12/20 12:00 Nasal Cannula 3.0 02/12/20 11:42 88 Intake and Output 02/12/20 02/13/20 19:00 07:00 Intake Total 1090 ml 1365 ml Output Total 600 ml 400 ml Balance 490 ml 965 ml IV Total 550 ml 705 ml Tube Feeding 540 ml 660 ml Output Urine Total 600 ml 400 ml # Voids 2 # Bowel Movements 3 Objective GENERAL: Ill-appearing female.awake HEENT: Negative. The patient's oropharynx is dry. NECK: Supple. No adenopathy. LUNGS: reduced breath sounds right lung, reduced left lung. CARDIAC: S1, S2. Slightly tachycardic without murmurs. ABDOMEN: Soft, nontender. G-tube in place. EXTREMITIES: No cyanosis or clubbing. NEUROLOGIC: Confused. Responds to pain x4. Laboratory Tests 02/12/20 12:03: POC Whole Blood Glucose [Pending] 02/12/20 16:51: POC Whole Blood Glucose [Pending] 02/12/20 23:15: POC Whole Blood Glucose 119H 02/13/20 05:33: POC Whole Blood Glucose [Pending] Current Medications Medications (Trade) Dose Ordered Sig/Leonard Route PRN Reason Start Time Stop Time Status Last Admin Dose Admin Acetaminophen (Tylenol) 325 mg Q4H PRN GT Mild Pain (Pain Scale 1-3) 02/08/20 08:15 03/09/20 08:14 02/12/20 13:41 Amlodipine Besylate (Norvasc) 5 mg DAILY GT 02/08/20 09:00 03/09/20 08:59 02/13/20 08:13 Aspirin (ASA) 81 mg DAILY GT 02/11/20 09:00 03/27/20 08:59 02/13/20 08:12 Atorvastatin Calcium (Lipitor) 80 mg QHS GT 02/08/20 21:00 05/08/20 20:59 02/12/20 20:22 Cefepime HCl 2 gm/ Dextrose 55 ml @ 110 mls/hr EVERY 12 HOURS IVPB 02/09/20 09:00 02/16/20 08:59 02/13/20 08:11 Dextrose (Dextrose 50%) 25 ml Q30M PRN IV Hypoglycemia 02/08/20 09:45 05/08/20 09:44 Dextrose (Dextrose 50%) 50 ml Q30M PRN IV Hypoglycemia 02/08/20 09:45 05/08/20 09:44 Insulin Aspart (NovoLOG) Q6HR SUBQ 02/08/20 12:00 05/08/20 11:59 02/10/20 11:24 Lansoprazole (Prevacid) 30 mg DAILY GT 02/08/20 09:00 03/09/20 08:59 02/13/20 08:12 Metoclopramide HCl (Reglan) 10 mg Q6H PRN IVP Nausea & Vomiting 02/08/20 08:15 03/09/20 08:14 Miconazole Nitrate (Miconazole Nitrate) 1 applic EVERY 12 HOURS TOPIC 02/10/20 21:00 05/08/20 17:59 02/12/20 20:22 Sodium Chloride 1,000 ml @ 50 mls/hr Q20H IV 02/08/20 14:15 03/09/20 14:14 02/12/20 17:16 Tramadol HCl (Ultram) 50 mg Q6H PRN GT Moderate Pain (Pain Scale 4-6) 02/08/20 08:30 02/15/20 08:29 02/13/20 08:13 Assessment/Plan Assessment/Plan IMPRESSION: 1. Recurrent pleural effusion, likely due to small cell cancer. 2. 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 3. Chronic respiratory failure. 4. Hypercapnia. 5. Hypoxemia. 6. Severe protein-calorie malnutrition. 7. Hypertension per history. PLAN d/w thoracic surgeon oxygen as needed pain control and monitor onc follow up advance directives prognosis poor expect fluid to reaccumlate with advanced cancer will need pleuRX catheter- awaiting intervention impression, plan, and exam edited and reviewed in detail care discussed with Jose Luis Ortega MD Feb 13, 2020 09:10
[2020-02-13] MEDS: Miconazole 2% Cream 30gm TOPIC SCH (09:36)
--- NOTE | 2020-02-13 10:38 | Infectious Diseases Prog Note ---
Assessment/Plan Assessment/Plan antibiotics : cefepime A 1. pneumonia COVID 19 negative 2. pleural effusion s/p thoracentesis 3. diabetes mellitus 4. hypertension 5. lung cancer 6. schizophrenia 7. dementia 8. COPD 9. leucocytosis increased P 1. d/c cefepime 2. start zosyn 3. will follow up cultures Subjective ROS Limited/Unobtainable: Yes Allergies: Coded Allergies: No Known Allergies (Verified , 09/23/14) Objective Last 24 Hour Vital Signs Date Time Temp Pulse Resp B/P (MAP) Pulse Ox O2 Delivery O2 Flow Rate FiO2 02/13/20 08:13 87 107/82 02/13/20 08:00 Nasal Cannula 3.0 02/13/20 08:00 97.5 93 20 107/72 (84) 99 02/13/20 07:54 91 02/13/20 04:00 98.0 88 20 112/79 (90) 96 02/13/20 04:00 Nasal Cannula 3.0 02/13/20 04:00 87 02/13/20 00:00 90 02/13/20 00:00 97.6 93 20 95/64 (74) 97 02/13/20 00:00 Nasal Cannula 3.0 02/12/20 20:00 98.0 75 20 103/71 (82) 98 02/12/20 20:00 88 02/12/20 20:00 Nasal Cannula 3.0 02/12/20 17:19 98.7 02/12/20 16:00 Nasal Cannula 3.0 02/12/20 16:00 98.7 98 21 129/78 (95) 98 02/12/20 15:32 87 02/12/20 14:11 98.8 02/12/20 12:00 98.8 95 22 106/75 (85) 95 02/12/20 12:00 Nasal Cannula 3.0 02/12/20 11:42 88 Height (Feet): 5 Height (Inches): 5.00 Weight (Pounds): 129 Respiratory/Chest: lungs clear Cardiovascular: normal rate, regular rhythm, no gallop/murmur Abdomen: soft, non tender, other - GT Extremities: no edema Laboratory Tests Test 02/12/20 12:03 02/12/20 16:51 02/12/20 23:15 02/13/20 05:33 POC Whole Blood Glucose Pending Pending 119 MG/DL (74-106) H Pending Current Medications Medications (Trade) Dose Ordered Sig/Leonard Route PRN Reason Start Time Stop Time Status Last Admin Dose Admin Acetaminophen (Tylenol) 325 mg Q4H PRN GT Mild Pain (Pain Scale 1-3) 02/08/20 08:15 03/09/20 08:14 02/12/20 13:41 Amlodipine Besylate (Norvasc) 5 mg DAILY GT 02/08/20 09:00 03/09/20 08:59 02/13/20 08:13 Aspirin (ASA) 81 mg DAILY GT 02/11/20 09:00 03/27/20 08:59 02/13/20 08:12 Atorvastatin Calcium (Lipitor) 80 mg QHS GT 02/08/20 21:00 05/08/20 20:59 02/12/20 20:22 Cefepime HCl 2 gm/ Dextrose 55 ml @ 110 mls/hr EVERY 12 HOURS IVPB 02/09/20 09:00 02/16/20 08:59 02/13/20 08:11 Dextrose (Dextrose 50%) 25 ml Q30M PRN IV Hypoglycemia 02/08/20 09:45 05/08/20 09:44 Dextrose (Dextrose 50%) 50 ml Q30M PRN IV Hypoglycemia 02/08/20 09:45 05/08/20 09:44 Insulin Aspart (NovoLOG) Q6HR SUBQ 02/08/20 12:00 05/08/20 11:59 02/10/20 11:24 Lansoprazole (Prevacid) 30 mg DAILY GT 02/08/20 09:00 03/09/20 08:59 02/13/20 08:12 Metoclopramide HCl (Reglan) 10 mg Q6H PRN IVP Nausea & Vomiting 02/08/20 08:15 03/09/20 08:14 Miconazole Nitrate (Miconazole Nitrate) 1 applic EVERY 12 HOURS TOPIC 02/10/20 21:00 05/08/20 17:59 02/13/20 09:36 Sodium Chloride 1,000 ml @ 50 mls/hr Q20H IV 02/08/20 14:15 03/09/20 14:14 02/12/20 17:16 Tramadol HCl (Ultram) 50 mg Q6H PRN GT Moderate Pain (Pain Scale 4-6) 02/08/20 08:30 02/15/20 08:29 02/13/20 08:13 Judith Still MD Feb 13, 2020 10:38
[2020-02-13] MEDS ORDERED: Piperacillin/Tazobactam 3.375 GM in NS 110 ML IVPB SCH ×2 (12:00→22:00)
[2020-02-13] MEDS ORDERED: Acetaminophen 650mg/20.3ml GT PRN ×2 (13:07→13:15)
[2020-02-13] MEDS ORDERED: Metoclopramide 10mg/2ml Inj IVP PRN ×2 (13:08→13:30)
[2020-02-13] MEDS ORDERED: traMADol 50mg tab GT PRN ×2 (13:08→14:30)
--- NOTE | 2020-02-13 13:17 | Anethesia Preoperative Eval ---
Anesthesia Pre-op PMH/ROS General Date of Evaluation: Feb 13, 2020 Time of Evaluation: 13:16 Anesthesiologist: martin ASA Score: ASA 4 Mallampati Score Class I : Soft palate, uvula, fauces, pillars visible Class II: Soft palate, uvula, fauces visible Class III: Soft palate, base of uvula visible Class IV: Only hard plate visible Mallampati Classification: Class III Surgeon: López Diagnosis: Pleural Effusion Surgical Procedure: Flexible bronch Anesthesia History: none Family History: no anesthesia problems Allergies: Coded Allergies: No Known Allergies (Verified , 09/23/14) Medications: see eMAR Patient NPO?: Yes NPO Date: Feb 13, 2020 NPO Time: 00:01 Past Medical History Cardiovascular: Reports: HTN; Denies: CAD, [place], valve dz, arrhythmia, other Pulmonary: Reports: COPD, other - Small cell cancer; Resp Failure; Pleural effusion thoracentesis x2.; Denies: asthma, MAXINE Gastrointestinal/Genitourinary: Denies: GERD, CRI, ESRD, other Neurologic/Psychiatric: Reports: dementia - s/p fall; CT scans of the head shows no acute intracranial injury, depression/anxiety, other - Neuroendocrine METS; Denies: CVA, TIA Endocrine: Reports: DM; Denies: hypothyroidism, steroids, other HEENT: Denies: cataract (L), cataract (R), glaucoma, [place] (L), [place] (R), other Hematology/Immune: Reports: anemia; Denies: DVT, bleeding disorder, other Musculoskeletal/Integumentary: Reports: OA, DDD, other - T4 fx; Denies: RA, DJD, edema Other: other - malnutrition PMH Narrative: COVID NEG 1. Recurrent pleural effusion, likely due to small cell cancer. 2. 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 3. Chronic respiratory failure. 4. Hypercapnia. 5. Hypoxemia. 6. Severe protein-calorie malnutrition. 7. Hypertension per history. Anesthesia Pre-op Phys. Exam Physician Exam Last Vital Signs Date Time Temp Pulse Resp B/P (MAP) Pulse Ox O2 Delivery O2 Flow Rate FiO2 02/13/20 12:00 97.2 93 24 95/62 (73) 97 02/13/20 11:33 Nasal Cannula 3.0 02/10/20 04:00 31 Constitutional: other - poor prognosis; weakness; demential Neurologic: other - demented Cardiovascular: RRR Gastrointestinal: S/NT/ND Airway Exam Mallampati Classification 2 Mallampati Score: Class II MO: limited ROM: limited Dentures: no upper, no lower Anesthesia Pre-op A/P Labs Chemistry Test 02/12/20 16:51 02/12/20 23:15 02/13/20 05:33 02/13/20 11:31 POC Whole Blood Glucose Pending 119 MG/DL (74-106) H Pending 110 MG/DL (74-106) H Studies Pre-op Studies: EKG - SR Risk Assessment & Plan Assessment: Reassess the morning to surgery Plan: General; possible remain intubated Pre-Antibiotics Drug: Milka Noble CRNA Feb 13, 2020 13:17
--- NOTE | 2020-02-13 16:53 | General Progress Note ---
Assessment/Plan Assessment/Plan: Metastatic Lung CA Metastatic Neuroendocrine CA Recurrent Pleural Effusions - s/p Tap. Needs repeat Tap. Has a new Pleurex. ISH Dunlap. COPD. Avoid excess narcotics. High risk of respiratory failure. AODM - under control. T4 Fracture.DW Ortho. No intervention. Overall poor prognosis! Subjective Allergies: Coded Allergies: No Known Allergies (Verified , 09/23/14) Subjective Much more alert. c/o severe back pain. Objective Last 24 Hour Vital Signs Date Time Temp Pulse Resp B/P (MAP) Pulse Ox O2 Delivery O2 Flow Rate FiO2 02/13/20 16:00 98.8 101 19 103/57 (72) 100 02/13/20 16:00 94 02/13/20 13:00 97.9 94 20 101/72 (82) 98 02/13/20 12:00 97.2 93 24 95/62 (73) 97 02/13/20 11:40 88 02/13/20 11:33 Nasal Cannula 3.0 02/13/20 08:13 87 107/82 02/13/20 08:00 Nasal Cannula 3.0 02/13/20 08:00 97.5 93 20 107/72 (84) 99 02/13/20 07:54 91 02/13/20 04:00 98.0 88 20 112/79 (90) 96 02/13/20 04:00 Nasal Cannula 3.0 02/13/20 04:00 87 02/13/20 00:00 90 02/13/20 00:00 97.6 93 20 95/64 (74) 97 02/13/20 00:00 Nasal Cannula 3.0 02/12/20 20:00 98.0 75 20 103/71 (82) 98 02/12/20 20:00 88 02/12/20 20:00 Nasal Cannula 3.0 02/12/20 17:19 98.7 Intake and Output 02/12/20 02/13/20 19:00 07:00 Intake Total 1090 ml 1365 ml Output Total 600 ml 400 ml Balance 490 ml 965 ml IV Total 550 ml 705 ml Tube Feeding 540 ml 660 ml Output Urine Total 600 ml 400 ml # Voids 2 # Bowel Movements 3 Laboratory Tests 02/12/20 16:51: POC Whole Blood Glucose [Pending] 02/12/20 23:15: POC Whole Blood Glucose 119H 02/13/20 05:33: POC Whole Blood Glucose [Pending] 02/13/20 11:31: POC Whole Blood Glucose 110H Height (Feet): 5 Height (Inches): 5.00 Weight (Pounds): 129 Objective Alert. CV RR Lungs B ronchi Abd SNT BS + E No CCE. Slightly cold feet. Good capillary refill. Sterling Petersen MD Feb 13, 2020 16:53
[2020-02-13 17:17] LABS: BASOPHILS % (AUTO) 0.9 % (0.0-2.0); EOSINOPHILS % (AUTO) 1.4 % (0.0-3.0); HEMATOCRIT 35.8 % (37.0-47.0); HEMOGLOBIN 11.8 G/DL (12.0-16.0); MEAN CORPUSCULAR VOLUME 97 FL (80-99); MONOCYTES % (AUTO) 5.7 % (1.0-10.0); NEUTROPHILS % (AUTO) 83.1 % (45.0-75.0); PLATELET COUNT 346 K/UL (150-450); RED BLOOD COUNT 3.71 M/UL (4.20-5.40); RED CELL DISTRIBUTION WIDTH 15.7 % (11.6-14.8); WHITE BLOOD COUNT 13.6 K/UL (4.8-10.8)
[2020-02-13 17:32] LABS: ANION GAP 5 mmol/L (5-15); BLOOD UREA NITROGEN 14 mg/dL (7-18); CALCIUM 9.3 MG/DL (8.5-10.1); CARBON DIOXIDE 33 MMOL/L (21-32); CHLORIDE 97 MMOL/L (98-107); CREATININE 0.3 MG/DL (0.55-1.30); POTASSIUM 4.1 MMOL/L (3.5-5.1); SODIUM 135 MMOL/L (136-145)
[2020-02-13] MEDS ORDERED: NovoLOG Insulin Flexpen SUBQ SCH (18:00)
[2020-02-13] MEDS: HYDROcodone/Acetamin 5/325 tab GT PRN (18:32)
[2020-02-13] MEDS ORDERED: Miconazole 2% Cream 30gm TOPIC SCH ×2 (21:00)
[2020-02-13] MEDS ORDERED: Atorvastatin 80mg tab GT SCH ×2 (21:00)
[2020-02-13] MEDS: Piperacillin/Tazobactam 3.375 GM in NS 110 ML IVPB SCH (22:00)
[2020-02-14] VITALS: BP 96/60
[2020-02-14 04:00] VITALS: BP 109/67
[2020-02-14] MEDS: Piperacillin/Tazobactam 3.375 GM in NS 110 ML IVPB SCH (05:32)
[2020-02-14] MEDS: HYDROcodone/Acetamin 5/325 tab GT PRN (05:42)
[2020-02-14] MEDS: NovoLOG Insulin Flexpen SUBQ SCH (06:00)
[2020-02-14] MEDS ORDERED: LR 1000ml 1,000 ML IVLG SCH (06:59)
[2020-02-14] MEDS ORDERED: Atropine Sulfate 0.4mg/ml inj IVP PRN ×2 (07:00→10:00)
[2020-02-14] MEDS ORDERED: Metoclopramide 10mg/2ml Inj IVP PRN ×2 (07:00→10:00)
[2020-02-14] MEDS ORDERED: HYDROcodone/Acetamin 7.5/325 tab ORAL PRN ×3 (07:00→12:00)
[2020-02-14] MEDS ORDERED: Sterile Water Irrig 1000ml IRRIG ONE (07:00)
[2020-02-14] MEDS ORDERED: oxyCODONE HCL/Acetaminophen 5/325mg ORAL PRN ×3 (07:00→12:15)
[2020-02-14] MEDS ORDERED: Acetaminophen (Non formulary) 100 ML IV ONE (07:00)
[2020-02-14] MEDS ORDERED: LORazepam Inj 2mg/ml 1ml IV PRN (07:00)
[2020-02-14] MEDS ORDERED: NS Irrig 1000ml ONE (07:00)
[2020-02-14] MEDS ORDERED: Midazolam 2mg/2ml Inj IVP PRN (07:00)
[2020-02-14] MEDS ORDERED: HYDROcodone/Acetamin 5/325 tab ORAL PRN ×2 (07:00→10:00)
[2020-02-14] MEDS ORDERED: Meperidine 25mg/0.5ml Inj (FOR RIGORS ONLY) IV PRN (07:00)
[2020-02-14] MEDS ORDERED: Hydromorphone 0.5mg/0.5ml inj IVP PRN ×3 (07:00→12:00)
[2020-02-14] MEDS ORDERED: DiphenhydrAMINE 50mg/ml Inj IVP PRN ×2 (07:00→10:00)
[2020-02-14] MEDS ORDERED: fentaNYL 100 mcg/2 mL IV PRN ×2 (07:00→10:00)
[2020-02-14] MEDS ORDERED: LR 1000ml ONE (07:00)
[2020-02-14] MEDS ORDERED: Labetalol 5mg/ml 20ml vial IV PRN ×2 (07:00→10:00)
[2020-02-14] MEDS ORDERED: Rocuronium Bromide 50mg/5ml Inj IV ONE (07:10)
[2020-02-14] MEDS ORDERED: Lidocaine 1% Plain 30 ml INJ ONE ×3 (07:12→08:13)
[2020-02-14] MEDS ORDERED: Lidocaine 1% MPF 10mg/ml 5ml ONE (07:16)
[2020-02-14] MEDS ORDERED: Sodium Chloride 10ml vial INJ ONE (07:16)
[2020-02-14] MEDS ORDERED: fentaNYL 100 mcg/2 mL IV ONE (07:17)
[2020-02-14 07:28] LABS: ALANINE AMINOTRANSFERASE 21 U/L (12-78); ALBUMIN 2.1 G/DL (3.4-5.0); ALBUMIN/GLOBULIN RATIO 0.5 (1.0-2.7); ALKALINE PHOSPHATASE 80 U/L (46-116); ANION GAP 6 mmol/L (5-15); ASPARTATE AMINO TRANSFERASE 22 U/L (15-37); BILIRUBIN,TOTAL 0.5 MG/DL (0.2-1.0); BLOOD UREA NITROGEN 11 mg/dL (7-18); CALCIUM 9.2 MG/DL (8.5-10.1); CARBON DIOXIDE 33 MMOL/L (21-32); CHLORIDE 97 MMOL/L (98-107); CREATININE 0.3 MG/DL (0.55-1.30); SODIUM 136 MMOL/L (136-145)
--- NOTE | 2020-02-14 07:33 | Immediate Post-Op Evaluation ---
Immediate Post-Op Evalulation Immediate Post-Op Evalulation Procedure: VATS Date of Evaluation: Feb 14, 2020 Time of Evaluation: 09:47 IV Fluids: 400 LR Blood Products: 0 Estimated Blood Loss: 100 Urinary Output: 0 Blood Pressure Systolic: 121 Blood Pressure Diastolic: 78 Pulse Rate: 88 Respiratory Rate: 16 O2 Sat by Pulse Oximetry: 100 Temperature (Fahrenheit): 98.2 Pain Score (1-10): 2 Nausea: No Vomiting: No Complications 0 Patient Status: awake, reacts, patent, none Hydration Status: adequate Dru Gram Ancef IV Given Within 1 Hr of Incision: Yes Time Given: 08:24 Ronaldo Lam MD Feb 14, 2020 07:33
[2020-02-14] MEDS ORDERED: Lidocaine 1% 10mg/ml/Epi 0.005mg/ml 30ml vial INJ ONE (07:36)
[2020-02-14] MEDS ORDERED: Bupivacaine 0.5% Inj 30 ml vial INJ ONE (07:36)
[2020-02-14] MEDS ORDERED: Bupivacaine w/Epi 0.5% 30ml Vial INJ ONE ×2 (07:36→07:37)
[2020-02-14] MEDS ORDERED: Bacitracin 50000 Units Vial ONE (07:37)
[2020-02-14] MEDS ORDERED: NeoSporin Gu Irrig 1ml Amp IRRIG ONE (07:37)
[2020-02-14 08:00] VITALS: BP 136/80
--- NOTE | 2020-02-14 08:07 | Pre-Procedure Note/Attestation ---
Pre-Procedure Note/Attestation Complete Prior to Procedure Planned Procedure: right Procedure Narrative: Bronchoscopy, right video-assisted thoracoscopic surgery/pleurex catheter placement Indications for Procedure Pre-Operative Diagnosis: Recurrent right pleural effusion Attestation I attest that I discussed the nature of the procedure; its benefits; risks and complications; and alternatives (and the risks and benefits of such alternatives ), prior to the procedure, with the patient (or the patient's legal traffic workforce representative). I attest that, if there was a reasonable possibility of needing a blood transfusion, the patient (or the patient's legal traffic workforce representative) was given the [facility] standardized written summary, pursuant to the Mario Stephanie Blood Safety Act ([place] Health and Safety Code # 1645, as amended). I attest that I re-evaluated the patient just prior to the surgery and that there has been no change in the patient's H&P, except as documented below: Haja Dawn MD Feb 14, 2020 08:07
--- NOTE | 2020-02-14 08:17 | Pulmonology Progress Note ---
Subjective ROS Limited/Unobtainable: Yes Allergies: Coded Allergies: No Known Allergies (Verified , 09/23/14) Subjective care noted no distress- recurrent effusions s/p tap x 2 seen earlier...for procedure today comfortable Objective Last 24 Hour Vital Signs Date Time Temp Pulse Resp B/P (MAP) Pulse Ox O2 Delivery O2 Flow Rate FiO2 02/14/20 06:12 97.7 02/14/20 04:00 99 02/14/20 04:00 98.6 90 20 109/67 (81) 97 02/14/20 00:00 91 02/14/20 00:00 97.7 91 19 96/60 (72) 95 02/13/20 23:50 98.8 02/13/20 21:00 Nasal Cannula 3.0 02/13/20 21:00 Nasal Cannula 3.0 02/13/20 20:00 98.6 90 18 100/56 (71) 97 02/13/20 20:00 90 02/13/20 16:00 98.8 101 19 103/57 (72) 100 02/13/20 16:00 94 02/13/20 13:00 97.9 94 20 101/72 (82) 98 02/13/20 12:00 97.2 93 24 95/62 (73) 97 02/13/20 11:40 88 02/13/20 11:33 Nasal Cannula 3.0 Intake and Output 02/13/20 02/14/20 19:00 07:00 Intake Total 850 ml Output Total 450 ml Balance 400 ml Intake Free Water 120 ml IV Total 250 ml Tube Feeding 480 ml Output Urine Total 450 ml # Voids 1 Objective GENERAL: Ill-appearing female.awake HEENT: Negative. The patient's oropharynx is dry. NECK: Supple. No adenopathy. LUNGS: reduced breath sounds right lung, reduced left lung. CARDIAC: S1, S2. Slightly tachycardic without murmurs. ABDOMEN: Soft, nontender. G-tube in place. EXTREMITIES: No cyanosis or clubbing. NEUROLOGIC: Confused. Responds to pain x4. Laboratory Tests 02/13/20 11:31: POC Whole Blood Glucose 110H 02/13/20 17:00: White Blood Count 13.6H, Red Blood Count 3.71L, Hemoglobin 11.8L, Hematocrit 35.8L, Mean Corpuscular Volume 97, Mean Corpuscular Hemoglobin 31.8H, Mean Corpuscular Hemoglobin Concent 32.9, Red Cell Distribution Width 15.7H, Platelet Count 346, Mean Platelet Volume 6.6, Neutrophils (%) (Auto) 83.1H, Lymphocytes (%) (Auto) 9.0L, Monocytes (%) (Auto) 5.7, Eosinophils (%) (Auto) 1.4, Basophils (%) (Auto) 0.9, Sodium Level 135L, Potassium Level 4.1, Chloride Level 97L, Carbon Dioxide Level 33H, Anion Gap 5, Blood Urea Nitrogen 14, Creatinine 0.3L, Estimat Glomerular Filtration Rate > 60, Glucose Level 114H, Calcium Level 9.3 02/13/20 18:36: POC Whole Blood Glucose 110H 02/14/20 05:41: Sodium Level 136, Potassium Level 4.0, Chloride Level 97L, Carbon Dioxide Level 33H, Anion Gap 6, Blood Urea Nitrogen 11, Creatinine 0.3L, Estimat Glomerular Filtration Rate > 60, Glucose Level 98, Calcium Level 9.2, Magnesium Level 1.7L , Total Bilirubin 0.5, Aspartate Amino Transf (AST/SGOT) 22, Alanine Aminotransferase (ALT/SGPT) 21, Alkaline Phosphatase 80, Total Protein 6.1L, Albumin 2.1L, Globulin 4.0, Albumin/Globulin Ratio 0.5L Current Medications Medications (Trade) Dose Ordered Sig/Leonard Route PRN Reason Start Time Stop Time Status Last Admin Dose Admin Acetaminophen (Tylenol) 325 mg Q4H PRN GT Mild Pain (Pain Scale 1-3) 02/13/20 13:15 03/14/20 13:14 02/13/20 23:20 Acetaminophen/ Hydrocodone Bitart ([place] 5/325) 1 tab Q1H PRN ORAL Mild Pain (Pain Scale 1-3) 02/14/20 07:00 02/14/20 14:00 Acetaminophen/ Hydrocodone Bitart ([place] 5/325) 1 tab Q6H PRN GT For Pain 02/13/20 17:00 02/20/20 16:59 02/14/20 05:42 Acetaminophen/ Hydrocodone Bitart ([place] 7.5/325) 1 tab Q1H PRN ORAL Moderate Pain (Pain Scale 4-6) 02/14/20 07:00 02/14/20 14:00 Al Hydroxide/Mg Hydroxide (Mylanta) 15 ml Q1H PRN ORAL gi upset 02/14/20 07:00 02/14/20 14:00 Amlodipine Besylate (Norvasc) 5 mg DAILY GT 02/14/20 09:00 03/09/20 08:59 Aspirin (ASA) 81 mg DAILY GT 02/14/20 09:00 03/27/20 08:59 Atorvastatin Calcium (Lipitor) 80 mg QHS GT 02/13/20 21:00 05/08/20 20:59 02/13/20 23:06 Atropine Sulfate (Atropine 0.4mg/ ml) 0.5 mg Q5M PRN IVP HR<40 02/14/20 07:00 02/14/20 14:00 Dextrose (Dextrose 50%) 25 ml Q30M PRN IV Hypoglycemia 02/13/20 13:15 05/08/20 09:44 Dextrose (Dextrose 50%) 50 ml Q30M PRN IV Hypoglycemia 02/13/20 13:15 05/08/20 09:44 Diphenhydramine HCl (Benadryl) 25 mg Q15M PRN IVP Itching 02/14/20 07:00 02/14/20 14:00 Fentanyl Citrate (Sublimaze 100 mcg/2 mL) 25 mcg Q10M PRN IV Moderate Pain (Pain Scale 4-6) 02/14/20 07:00 02/14/20 14:00 Hydralazine HCl (Apresoline) 5 mg Q30M PRN IV SBP>160 / DBP>90 02/14/20 07:00 02/14/20 14:00 Hydromorphone HCl (Dilaudid) 0.5 mg Q15M PRN IVP Severe Pain (Pain Scale 7-10) 02/14/20 07:00 02/14/20 14:00 Insulin Aspart (NovoLOG) Q6HR SUBQ 02/13/20 18:00 05/08/20 11:59 Labetalol HCl (Normodyne) 5 mg Q10M PRN IV SBP>160 / DBP>90 02/14/20 07:00 02/14/20 14:00 Lactated Ringer's 1,000 ml @ 10 mls/hr Q24H IVLG 02/14/20 06:59 02/14/20 08:58 Lansoprazole (Prevacid) 30 mg DAILY GT 02/14/20 09:00 03/09/20 08:59 Lorazepam (Ativan 2mg/ml 1ml) 1 mg Q15M PRN IV For Anxiety 02/14/20 07:00 02/14/20 14:00 Meperidine HCl (Demerol) 25 mg Q5M PRN IV SHIVERING.MAY REPEAT X 1 02/14/20 07:00 02/14/20 14:00 Metoclopramide HCl (Reglan) 10 mg Q1H PRN IVP Nausea & Vomiting 02/14/20 07:00 02/14/20 14:00 Metoclopramide HCl (Reglan) 10 mg Q6H PRN IVP Nausea & Vomiting 02/13/20 13:30 03/14/20 13:29 Miconazole Nitrate (Miconazole Nitrate) 1 applic EVERY 12 HOURS TOPIC 02/13/20 21:00 05/08/20 17:59 02/13/20 21:00 Midazolam HCl (Versed 2mg/2ml vial) 1 mg Q15M PRN IVP For Anxiety 02/14/20 07:00 02/14/20 14:00 Ondansetron HCl (Zofran) 4 mg Q1H PRN IVP Nausea & Vomiting 02/14/20 07:00 02/14/20 14:00 Oxycodone/ Acetaminophen (Percocet 5-325) 1 tab Q1H PRN ORAL Severe Pain (Pain Scale 7-10) 02/14/20 07:00 02/14/20 14:00 Piperacillin Sod/ Tazobactam Sod 3.375 gm/Sodium Chloride 110 ml @ 27.5 mls/hr EVERY 8 HOURS IVPB 02/13/20 22:00 02/18/20 21:59 02/14/20 05:32 Sodium Chloride 1,000 ml @ 50 mls/hr Q20H IV 02/13/20 13:30 03/14/20 13:29 02/13/20 14:16 Assessment/Plan Assessment/Plan IMPRESSION: 1. Recurrent pleural effusion, likely due to small cell cancer. 2. 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 3. Chronic respiratory failure. 4. Hypercapnia. 5. Hypoxemia. 6. Severe protein-calorie malnutrition. 7. Hypertension per history. PLAN d/w thoracic surgeon oxygen as needed pain control and monitor onc follow up advance directives prognosis poor for pleuRX catheter- awaiting intervention today impression, plan, and exam edited and reviewed in detail care discussed with Jose Luis Ortega MD Feb 14, 2020 08:17
[2020-02-14] MEDS ORDERED: Glycopyrrolate 0.2mg/ml 1ml Vial ONE (08:54)
[2020-02-14] MEDS ORDERED: Neostigmine 1mg/ml 10ml Inj ONE (08:54)
[2020-02-14] MEDS ORDERED: Flumazenil 0.5mg/5ml Inj IV ONE (08:56)
[2020-02-14] MEDS ORDERED: Aspirin Baby 81mg GT SCH ×2 (09:00)
[2020-02-14] MEDS ORDERED: Naloxone 0.4mg/ml Inj ONE (09:03)
[2020-02-14 09:28] VITALS: BP 121/78
--- NOTE | 2020-02-14 09:50 | Brief Operative Note ---
Immediate Post Operative Note Operative Note Pre-op Diagnosis: Recurrent right pleural effusion Procedure: Bronchoscopy, R VATS, partial pleurectomy, pleurex catheter placement & INB Post-op Diagnosis: same Post-op Diagnosis: same as pre-op Surgeon: López Cnc Cutting Operator: Lis Anesthesiologist: Genaro Anesthesia: general Specimen: yes Complications: none Condition: stable Fluids: 1000 cc Estimated Blood Loss: minimal Implant(s) used?: No Haja Dawn MD Feb 14, 2020 09:50
[2020-02-14] MEDS ORDERED: Acetaminophen 650mg/20.3ml GT PRN (10:00)
[2020-02-14] MEDS ORDERED: D5 1/2NS w/KCl 20mEq 1,000 ML IV SCH (10:00)
[2020-02-14 10:13] LABS: BASOPHILS % (AUTO) 0.9 % (0.0-2.0); HEMATOCRIT 33.6 % (37.0-47.0); HEMOGLOBIN 11.1 G/DL (12.0-16.0); LYMPHOCYTES % (AUTO) 15.2 % (20.0-45.0); MEAN CORPUSCULAR VOLUME 97 FL (80-99); MONOCYTES % (AUTO) 7.2 % (1.0-10.0); NEUTROPHILS % (AUTO) 75.8 % (45.0-75.0); PLATELET COUNT 366 K/UL (150-450); RED BLOOD COUNT 3.45 M/UL (4.20-5.40); RED CELL DISTRIBUTION WIDTH 15.9 % (11.6-14.8); WHITE BLOOD COUNT 14.3 K/UL (4.8-10.8)
--- NOTE | 2020-02-14 10:19 | Infectious Diseases Prog Note ---
Assessment/Plan Assessment/Plan A 1. Pneumonia COVID 19 negative 2. Pleural effusion s/p thoracentesis, VATS 3. Diabetes mellitus 4. Hypertension 5. Lung cancer 6. Schizophrenia 7. dementia 8. COPD 9. Leucocytosis improving P 1. Continue Zosyn 2. will follow up cultures Subjective ROS Limited/Unobtainable: Yes Constitutional: Denies: fever Respiratory: Reports: other - had R lung VATS, bronchoscopy & partial pleurectomy Allergies: Coded Allergies: No Known Allergies (Verified , 09/23/14) Objective Last 24 Hour Vital Signs Date Time Temp Pulse Resp B/P (MAP) Pulse Ox O2 Delivery O2 Flow Rate FiO2 02/14/20 09:28 88 16 100 02/14/20 08:00 97.6 74 20 136/80 (98) 98 02/14/20 06:12 97.7 02/14/20 04:00 99 02/14/20 04:00 98.6 90 20 109/67 (81) 97 02/14/20 00:00 91 02/14/20 00:00 97.7 91 19 96/60 (72) 95 02/13/20 23:50 98.8 02/13/20 21:00 Nasal Cannula 3.0 02/13/20 21:00 Nasal Cannula 3.0 02/13/20 20:00 98.6 90 18 100/56 (71) 97 02/13/20 20:00 90 02/13/20 16:00 98.8 101 19 103/57 (72) 100 02/13/20 16:00 94 02/13/20 13:00 97.9 94 20 101/72 (82) 98 02/13/20 12:00 97.2 93 24 95/62 (73) 97 02/13/20 11:40 88 02/13/20 11:33 Nasal Cannula 3.0 Height (Feet): 5 Height (Inches): 5.00 Weight (Pounds): 159 HEENT: mucous membranes moist Respiratory/Chest: decreased breath sounds, other - R side chest tube, Oxygen by mask Cardiovascular: normal rate Abdomen: soft, non tender, other - GT feeding Extremities: no edema Neurologic/Psychiatric: alert, responsive Laboratory Tests Test 02/13/20 11:31 02/13/20 17:00 02/13/20 18:36 02/14/20 05:41 POC Whole Blood Glucose 110 MG/DL (74-106) H 110 MG/DL (74-106) H White Blood Count 13.6 K/UL (4.8-10.8) H Red Blood Count 3.71 M/UL (4.20-5.40) L Hemoglobin 11.8 G/DL (12.0-16.0) L Hematocrit 35.8 % (37.0-47.0) L Mean Corpuscular Volume 97 FL (80-99) Mean Corpuscular Hemoglobin 31.8 PG (27.0-31.0) H Mean Corpuscular Hemoglobin Concent 32.9 G/DL (32.0-36.0) Red Cell Distribution Width 15.7 % (11.6-14.8) H Platelet Count 346 K/UL (150-450) Mean Platelet Volume 6.6 FL (6.5-10.1) Neutrophils (%) (Auto) 83.1 % (45.0-75.0) H Lymphocytes (%) (Auto) 9.0 % (20.0-45.0) L Monocytes (%) (Auto) 5.7 % (1.0-10.0) Eosinophils (%) (Auto) 1.4 % (0.0-3.0) Basophils (%) (Auto) 0.9 % (0.0-2.0) Sodium Level 135 MMOL/L (136-145) L 136 MMOL/L (136-145) Potassium Level 4.1 MMOL/L (3.5-5.1) 4.0 MMOL/L (3.5-5.1) Chloride Level 97 MMOL/L (98-107) L 97 MMOL/L (98-107) L Carbon Dioxide Level 33 MMOL/L (21-32) H 33 MMOL/L (21-32) H Anion Gap 5 mmol/L (5-15) 6 mmol/L (5-15) Blood Urea Nitrogen 14 mg/dL (7-18) 11 mg/dL (7-18) Creatinine 0.3 MG/DL (0.55-1.30) L 0.3 MG/DL (0.55-1.30) L Estimat Glomerular Filtration Rate > 60 mL/min (>60) > 60 mL/min (>60) Glucose Level 114 MG/DL (74-106) H 98 MG/DL (74-106) Calcium Level 9.3 MG/DL (8.5-10.1) 9.2 MG/DL (8.5-10.1) Magnesium Level 1.7 MG/DL (1.8-2.4) L Total Bilirubin 0.5 MG/DL (0.2-1.0) Aspartate Amino Transf (AST/SGOT) 22 U/L (15-37) Alanine Aminotransferase (ALT/SGPT) 21 U/L (12-78) Alkaline Phosphatase 80 U/L (46-116) Total Protein 6.1 G/DL (6.4-8.2) L Albumin 2.1 G/DL (3.4-5.0) L Globulin 4.0 g/dL Albumin/Globulin Ratio 0.5 (1.0-2.7) L Test 02/14/20 09:29 02/14/20 10:00 Arterial Blood pH 7.300 (7.350-7.450) Arterial Blood Partial Pressure CO2 69.9 mmHg (35.0-45.0) *H Arterial Blood Partial Pressure O2 91.6 mmHg (75.0-100.0) Arterial Blood HCO3 33.6 mmol/L (22.0-26.0) H Arterial Blood Oxygen Saturation 95.7 % (95-100) Arterial Blood Base Excess 5.2 (-2-2) H Pal Test Positive White Blood Count Pending Red Blood Count Pending Hemoglobin Pending Hematocrit Pending Mean Corpuscular Volume Pending Mean Corpuscular Hemoglobin Pending Mean Corpuscular Hemoglobin Concent Pending Red Cell Distribution Width Pending Platelet Count Pending Mean Platelet Volume Pending Neutrophils (%) (Auto) Pending Lymphocytes (%) (Auto) Pending Monocytes (%) (Auto) Pending Eosinophils (%) (Auto) Pending Basophils (%) (Auto) Pending Sodium Level Pending Potassium Level Pending Chloride Level Pending Carbon Dioxide Level Pending Blood Urea Nitrogen Pending Creatinine Pending Estimat Glomerular Filtration Rate Pending Glucose Level Pending Calcium Level Pending Ionized Calcium (Measured) Pending Phosphorus Level Pending Current Medications Medications (Trade) Dose Ordered Sig/Leonard Route PRN Reason Start Time Stop Time Status Last Admin Dose Admin Acetaminophen (Tylenol) 325 mg Q4H PRN GT Mild Pain (Pain Scale 1-3) 02/14/20 10:00 03/14/20 09:59 Acetaminophen/ Hydrocodone Bitart ([place] 5/325) 1 tab Q6H PRN GT For Pain 4-10 02/14/20 11:00 02/20/20 16:59 Amlodipine Besylate (Norvasc) 5 mg DAILY GT 02/15/20 09:00 03/09/20 08:59 Aspirin (ASA) 81 mg DAILY GT 02/15/20 09:00 03/27/20 08:59 Atorvastatin Calcium (Lipitor) 80 mg QHS GT 02/14/20 21:00 05/08/20 20:59 Dextrose (Dextrose 50%) 25 ml Q30M PRN IV Hypoglycemia 02/14/20 10:15 05/08/20 09:44 Dextrose (Dextrose 50%) 50 ml Q30M PRN IV Hypoglycemia 02/14/20 10:15 05/08/20 09:44 Dextrose/ Electrolytes 1,000 ml @ 75 mls/hr [id number] IV 02/14/20 10:00 02/15/20 09:00 Insulin Aspart (NovoLOG) Q6HR SUBQ 02/14/20 12:00 05/08/20 11:59 Lansoprazole (Prevacid) 30 mg DAILY GT 02/15/20 09:00 03/09/20 08:59 Metoclopramide HCl (Reglan) 10 mg Q6H PRN IVP Nausea & Vomiting 02/14/20 10:00 03/14/20 09:59 Miconazole Nitrate (Miconazole Nitrate) 1 applic EVERY 12 HOURS TOPIC 02/14/20 21:00 05/08/20 17:59 Piperacillin Sod/ Tazobactam Sod 3.375 gm/Sodium Chloride 110 ml @ 27.5 mls/hr EVERY 8 HOURS IVPB 02/14/20 14:00 02/18/20 21:59 Sodium Chloride 1,000 ml @ 50 mls/hr Q20H IV 02/14/20 10:00 03/14/20 13:29 Robbin Jurado MD Feb 14, 2020 10:19
[2020-02-14 10:24] LABS: ANION GAP 4 mmol/L (5-15); BLOOD UREA NITROGEN 11 mg/dL (7-18); CARBON DIOXIDE 31 MMOL/L (21-32); CHLORIDE 98 MMOL/L (98-107); CREATININE 0.4 MG/DL (0.55-1.30); PHOSPHORUS 4.5 MG/DL (2.5-4.9); POTASSIUM 5.4 MMOL/L (3.5-5.1); SODIUM 133 MMOL/L (136-145)
--- NOTE | 2020-02-14 10:30 | Diagnostic Imaging Report ---
Indication: Shortness of breath Technique: One view of the chest Comparison: 02/11/2020 Findings: Interim placement of a right chest drainage catheter; review of electronic medical record indicates that this is a chronic tunneled pleural drainage catheter. Some gas bubbles in the right inferolateral pleural space likely residual from recent VATS procedure. There is slightly decreased pleural opacity on the right and slightly improved right pulmonary aeration. Interstitial and airspace opacities in the right lung persist, however. Right paratracheal mass is again demonstrated. There is some fullness to the right pulmonary hilum Left lateral basilar pleural thickening versus fluid, multiple old left rib fracture deformities are again demonstrated. Impression: Interim placement of right hemithoracic chronic tunneled drainage catheter. Right inferolateral pleural space gas bubbles in overall slightly decreased peripheral opacity presumably related to recent VATS procedure. Unchanged right lung interstitial disease Large right paratracheal mass, likely metastatic lymphadenopathy given known history of lung carcinoma Other stable findings as described
[2020-02-14] MEDS ORDERED: HYDROcodone/Acetamin 5/325 tab GT PRN (11:00)
[2020-02-14] MEDS ORDERED: NovoLOG Insulin Flexpen SUBQ SCH (12:00)
[2020-02-14] MEDS ORDERED: HYDROcodone/Acetamin 7.5/325 tab GT PRN (12:00)
--- NOTE | 2020-02-14 12:13 | Emergency Room Report ---
History of Present Illness General Chief Complaint: Multiple Trauma/Fall Source: Patient, EMS Present Illness Allergies: Coded Allergies: No Known Allergies (Verified , 09/23/14) COVID-19 Screening Contact w/high risk pt: No Recent Travel to affected area: No Experienced COVID-19 symptoms?: No COVID-19 symptoms experienced: Cough COVID-19 Testing performed TREATMENT MANAGER: No COVID-19 Screening: Negative COVID-19 COVID-19 Testing Source: OTR OWNER OPERATOR Nursing Documentation-[facility] Past Medical History Deferred: Pt Cognitively Impaired Past Medical History: Deferred Hx Cardiac Problems: No Hx Hypertension: Yes Hx Asthma: Yes Hx Diabetes: Yes Hx Cancer: No Hx Gastrointestinal Problems: Yes Hx Neurological Problems: Yes Hx Peripheral Neuropathy: Yes Hx Weakness: Yes Physical Exam Vital Signs Date Time Temp Pulse Resp B/P (MAP) Pulse Ox O2 Delivery O2 Flow Rate FiO2 02/10/20 07:49 95 02/10/20 08:00 Simple Mask 4.0 02/10/20 08:00 97.5 25 109/72 (84) 98 02/14/20 10:27 32 Procedures Central Line Central Line : Consent: Emergent Central Line Lumen: triple Maximal Sterile Barrier Tech: yes cap, yes mask, yes sterile gown, yes sterile gloves, yes large sterile sheet, yes hand hygiene, yes chlorhexidine prep Central Line Postion: femoral (R) Anesthesia: local cc's of anesthesia: 2 US Guided Line?: Yes Vessel visualized with U/S: Right Femoral Vein Ultrasound Findings: Collapsible Vessel Complications: none Central Line Post Position: sutured, good blood return Attempts: One Patient Tolerated: Well Complications: None Progress Patient was started on levophed Intubation Intubation : Consent: Emergent Time of Intubation: 12:09 Intubation Method: orotracheal Tube Size (cm): 7.0 Breath Sounds after Intubation: equal Intubation Complications: no complications Post Intubation Xray: Yes Attempts: One Patient Tolerated: Well Complications: None Medical Decision Making Diagnostic Impression: Primary Impression: Fall from bed Additional Impressions: Back pain Pleural effusion Hyperkalemia Multiple injuries due to trauma ER Course I was contacted to evaluate the patient after cardiac arrest. CODE BLUE was initiated and patient was undergoing CPR on my arrival. She was receiving oxygen via bag valve mask. Patient was given medications as per code sheet. She was intubated with a 7 oh ET tube without any medications. direct visualization of vocal cords , patient was started on mechanical ventilation and CPR was continued as per code sheet. Patient had return of spontaneous circulation. Central venous line was placed under ultrasound guidance emergently due to persistent hypotension. Patient was started on Levophed. Primary care physician was notified. Last Vital Signs Date Time Temp Pulse Resp B/P (MAP) Pulse Ox O2 Delivery O2 Flow Rate FiO2 02/14/20 10:27 98 Nasal Cannula 3.0 32 02/14/20 09:28 88 16 02/14/20 08:00 97.6 136/80 (98) Status: unchanged Disposition: ADMITTED INPATIENT Condition: Critical Referrals: Sterling Petersen MD (PCP) Delano Prado MD Feb 14, 2020 12:13
[2020-02-14] MEDS ORDERED: D5W 275ml ONE (12:53)
[2020-02-14] MEDS ORDERED: Sodium Bicarbonate 8.4% 50ml Inj ONE ×2 (12:53)
[2020-02-14] MEDS ORDERED: Tubing IV Secondary IV ONE (12:53)
[2020-02-14] MEDS ORDERED: D5 1/2NS 1000ml IV ONE (12:53)
[2020-02-14] MEDS ORDERED: Piperacillin/Tazobactam 3.375 GM in NS 110 ML IVPB SCH (14:00)
--- NOTE | 2020-02-14 18:28 | Operative Note - Dictated ---
DATE OF OPERATION: 02/14/2020 SURGEON: Haja Dawn MD. WIRE STRIPPING MACHINE OPERATOR SURGEON: Jarod Hays MD. PREOPERATIVE DIAGNOSIS: Recurrent right pleural effusion. POSTOPERATIVE DIAGNOSIS: Recurrent right pleural effusion. PROCEDURE PERFORMED: 1. Flexible bronchoscopy. 2. Right video-assisted thoracoscopic surgery. 3. Intrapleural pneumolysis. 4. Partial pleurectomy. 5. PleurX catheter placement. 6. Intercostal nerve block. ANESTHESIA: Double-lumen general anesthesia. INDICATIONS: The patient is a 59-year-old female with a history small cell lung cancer, who presented to [facility] with a recurrent pleural effusion requiring multiple thoracenteses. She was taken to the operating room for definitive surgical care. The risks and benefits of the proposed operation were explained to the patient and her family in detail including, but not limited to bleeding, infection, air leak, need for blood transfusion, anesthetic complications, and less than 1%. In addition, alternative versus no treatment options were also discussed. The patient fully understands the rationale behind the proposed operation with all questions answered to her satisfaction. DESCRIPTION OF PROCEDURE: After obtaining informed consent, the patient was then brought to the operating room and placed in supine position, a surgical time-out was performed. After induction of general anesthesia, arterial line and BENJI hose stockings were placed. A flexible bronchoscope was introduced through the endotracheal tube. The trachea and brenda were inspected. The brenda was in midline sharp. The right tracheobronchial tree down to the subsegmental level was grossly normal and no endobronchial lesions were seen. Similarly, the left mainstem bronchus was intubated and no obvious endobronchial lesions were visualized at the subsegmental level. Minimal amount of mucopurulent secretions were lavaged and suctioned clear. The bronchoscope was pulled back and removed. The patient tolerated the procedure well with oxygen saturation greater than 96% throughout the procedure. Next, the patient was then placed in the left lateral decubitus position and prepped and draped in the usual sterile fashion. The patient also received preoperative intravenous antibiotic therapy. A 2 cm incision was made at the fifth space in midaxillary line. Dissection was then carried down into the subcutaneous tissue. Entry into the right hemithorax was uneventful. Passing of the Yankauer into the right hemithorax yielded roughly 2 L of pleural effusion and this was submitted off to cytology. After placement of a Thoracoport, there were adhesions tethering the lung to the surrounding chest wall. These adhesions were then taken down using a combination of sharp and blunt electrocauterization. After freeing the lung from the surrounding chest wall, we then proceeded to examine the intrathoracic cavity. There was noted to be numerous parietal pleural nodules indicative of metastatic disease. A partial pleurectomy was undertaken to encompass one of these nodules and this was submitted off the field for permanent section. After assuring hemostasis, we then proceeded to put the PleurX catheter in the usual standard fashion via an anesthetized subcutaneous tunnel. The PleurX catheter was then anchored at the skin level using 3-0 silk suture. The intercostal nerve block with 60 mL of 1% Marcaine was performed from the fourth to the sixth intercostal space in the standard fashion. The lung was allowed to inflate under direct visualization and the camera was then removed. The wound was then reapproximated with two layers of 3-0 Vicryl suture and the skin was reapproximated with 4-0 Monocryl suture. The PleurX was then connected to a suction Pleur-evac. The patient tolerated the procedure well without any complications. Needle and sponges were correct at the end of the operation. She was then transported to the intensive care unit in a satisfactory condition. ESTIMATED BLOOD LOSS: Minimal. COMPLICATIONS: None. SPECIMENS SUBMITTED: 1. Left pleural effusion 2 L. 2. Parietal nodule. Almendarez M.D. DR: PUSHPA JOB#: [id number] CC: [email or web address]
[2020-02-14] MEDS ORDERED: Miconazole 2% Cream 30gm TOPIC SCH (21:00)
[2020-02-14] MEDS ORDERED: Atorvastatin 80mg tab GT SCH (21:00)
[2020-02-15] MEDS ORDERED: Aspirin Baby 81mg GT SCH (09:00)
--- NOTE | 2020-02-18 11:53 | Discharge Summary ---
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 CT scan of the head revealed no acute intracranial injury. CT scan of the spine did not find acute injury in the spine , however identified large right-sided pleural effusion. X-ray of the left elbow revealed no acute abnormalities. Rapid COVID-19 was negative. Patient did not complain of shortness of breath , chest pain or back pain. S he had a brief desaturation by lying on her back which improved in the upright sitting position and starting on supplemental oxygen. Laboratory work-up revealed leukocytosis WBC 17.3 ; hyperkalemia noted and treated with insulin ,glucose and calcium gluconate. No EKG changes. Patient subsequently admitted to stepdown unit for further management. CONSULTANTS: Cardiothoracic surgeon Dr. Dawn Orthopedic surgery Dr. Angel Pulmonary Dr. Dunlap ID specialist Dr. Still [facility]: Patient admitted to stepdown unit. Patient pancultured and started on empiric antibiotics. Supplemental oxygen provided and titrated to keep pulse oximetry above 92%. Pulmonary toilet provided. Orthopedic surgeon seen and evaluated patient . Surgeon closely reviewed imaging. Patient had right chronic AC joint separation. No evidence of acute injury. Surgeon recommended weightbearing as tolerated and outpatient physical therapy. Patient was not a surgical candidate for AC joint reconstruction, given her overall medical condition Patient initially undergone CT of the chest , which revealed large right pleural effusion with atelectasis of the entire right lung. Nodular areas throughout the right pleura suspicious for metastatic implants. Mediastinal shift to the left. The left lung demonstrated moderate centrilobular emphysematous changes, trace left pleural effusion with subjacent atelectasis. No pneumothorax. Patient subsequently undergone ultrasound-guided thoracentesis of right pleural effusion , yielding 1400 mL of pleural fluid. Chest x-ray post-thoracentesis revealed some re-aeration of the right upper lung. No radiographically evident complication. Considerable residual opacity, likely reflecting combination of residual pleural fluid, tumor, and atelectatic lung. Pathology of pleural fluid revealed no malignant cells; mild chronic inflammation noted. Patient was followed-up with chest x-ray , which revealed on 02/10 complete opacification of the right hemithorax , presumably due to reaccumulated large pleural effusion. Patient subsequently undergone another ultrasound-guided thoracentesis on 02/10 yielding 2000 mL of the fluid. Antibiotic provided as per ID specialist recommendation. Pleural culture was negative. Patient had persistent leukocytosis ,no fevers. Patient was treated with empiric antibiotic for pneumonia. Pain management addressed. Overall prognosis remained poor. Cardiothoracic surgeon seen and evaluated patient. Patient subsequently undergone on 02/13 flexible bronchoscopy with right video- assisted thoracoscopy , intrapleural pneumolysis, partial pleurectomy, Pleurx catheter placement and intercostal nerve block. 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 Patient self extubated on the way to ICU Patient subsequently sustained a cardiac arrest. ACLS protocol initiated. Patient was hypotensive and required starting of pressors. Levophed initiated after insertion of central line. Patient was orally intubated. Patient had return of spontaneous circulation Patient suffered another two cardiac arrest. Unfortunately all resuscitative efforts appeared to be futile. Patient was pronounced at 12:54 PM 02/14/2020. 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 Status post mediastinal mass for stage IV small cell carcinoma History of neuroendocrine tumor Pneumonia Status post US guided thoracentesis x2 Status post flexible bronchoscopy with right VATS, intrapleural pneumolysis, partial pleurectomy, Pleurx catheter placement and intercostal nerve block Diabetes mellitus type 2 Hypertension with hypertensive cardiovascular disease COPD Leukocytosis Dysphasia, status post G-tube placement Peripheral vascular disease Peptic ulcer disease Multiple ulcers Right chronic AC joint separation History of multiple electrolyte abnormalities Schizophrenia Dementia I have been assigned to dictate discharge summary for this account. I was not involved in the patient's management. Kassandra Hicks NP Feb 18, 2020 11:53
--- NOTE | 2020-02-20 01:44 | Cardiology Report ---
APPROVED REPORT EKG Measurement Heart [id number] <Conclusion> Sinus tachycardia Possible Left atrial enlargement Nonspecific ST and T wave abnormality Abnormal ECG
--- NOTE | 2020-02-20 02:00 | Cardiology Report ---
APPROVED REPORT EKG Measurement Heart [id number] <Conclusion> Normal sinus rhythm Rightward axis Borderline ECG
--- NOTE | 2020-02-20 22:32 | Coder Physician Query ---
Clarification is required for compliance, coding accuracy, and to reflect severity of illness for this patient. Dear Dr. Rosemary Petersen Date: 02/20/20 A posssible diagnois of____SEPSIS was made in the medical record on the H&P and ID consult. At the time of admission, patient had leukocytosis of 17.3 and tachycardia of 113. She has a history of lung cancer and had large pleural effusion. On the day of admission, patient had a thoracentesis with removal of 1400 mL of bloody pleural fluid. Upon review, it is difficult to determine whether this diagnosis has been ruled in, ruled out,or is still being worked up. Please indicate below the status of the aforementioned diagnosis. [] Treated and resolved [X] Presumed and treated [] Currently under treatment [] Still being worked-up [] Ruled out Present on Admission: [] Yes [] No [] Clinically Undetermined Physician signature Date Please also document in your Progress Notes and/or Discharge Summary and indicate if the condition was present on admission. TIRSOD
== END 2020-02-14 12:54 | disposition expired | DRG 853 ==
LOC: EDBD 01:03 → EMR 01:15 → 2W 05:17 → EDBEDREQSVC 05:18 → EDBEDREQ 05:54 → 2W 09:50 → 2E 02-13 13:02 → ICU 02-14 09:16
PROC: 0W993ZZ Drainage of Right Pleural Cavity, Percutaneous Approach (ICD-10-PCS; 2020-02-08)
PROC: 0W993ZZ Drainage of Right Pleural Cavity, Percutaneous Approach (ICD-10-PCS; 2020-02-11)
PROC: 0W9940Z Drainage of Right Pleural Cavity with Drainage Device, Percutaneous Endoscopic Approach (ICD-10-PCS; principal; 2020-02-14 07:30)
PROC: 0BNK4ZZ Release Right Lung, Percutaneous Endoscopic Approach (ICD-10-PCS; principal; 2020-02-14 07:30)
PROC: 0BJ08ZZ Inspection of Tracheobronchial Tree, Via Natural or Artificial Opening Endoscopic (ICD-10-PCS; principal; 2020-02-14 07:30)
PROC: 0BH17EZ Insertion of Endotracheal Airway into Trachea, Via Natural or Artificial Opening (ICD-10-PCS; principal; 2020-02-14 07:30)
PROC: 0BBN4ZZ Excision of Right Pleura, Percutaneous Endoscopic Approach (ICD-10-PCS; principal; 2020-02-14 07:30)
DX: A41.9 Sepsis, unspecified organism (principal); J18.9 Pneumonia, unspecified organism; E43 Unspecified severe protein-calorie malnutrition; J96.21 Acute and chronic respiratory failure with hypoxia; C7A.8 Other malignant neuroendocrine tumors; J94.8 Other specified pleural conditions; Z43.1 Encounter for attention to gastrostomy; R57.9 Shock, unspecified; J91.0 Malignant pleural effusion; C78.2 Secondary malignant neoplasm of pleura; I10 Essential (primary) hypertension; F20.9 Schizophrenia, unspecified; F03.90 Unspecified dementia, unspecified severity, without behavioral disturbance, psychotic disturbance, mood disturbance, and anxiety; Z85.118 Personal history of other malignant neoplasm of bronchus and lung; F09 Unspecified mental disorder due to known physiological condition; E86.9 Volume depletion, unspecified; I11.9 Hypertensive heart disease without heart failure; K27.9 Peptic ulcer, site unspecified, unspecified as acute or chronic, without hemorrhage or perforation; I73.9 Peripheral vascular disease, unspecified; Z86.19 Personal history of other infectious and parasitic diseases; Z87.891 Personal history of nicotine dependence; J43.9 Emphysema, unspecified; E11.9 Type 2 diabetes mellitus without complications; M24.811 Other specific joint derangements of right shoulder, not elsewhere classified; M54.9 Dorsalgia, unspecified; E87.5 Hyperkalemia
CPT/HCPCS: 36415; 36600; 70450; 71045; 71250; 72125; 72128; 72131; 76942; 80048; 80053; 82330; 82803; 82962; 83036; 83735; 84100; 84484; 85007; 85025; 85610; 85730; 86850; 86900; 86901; 86920; 87070; 87081; 87205; 93005; 94003; 94150; 96374; 96375; 99291; J0171; J1815; J2405; J2710; U0002